=== PATIENT | female | born 1955 | race Caucasian/White ===

== ENCOUNTER 2021-03-08 09:27 | Outpatient (REF) | payer MEDICARE, MEDICAID, SELFPAY ==
--- NOTE | ~2021-03-08 | XR_ITS ---
EXAMINATION: XR LUMBAR SPINE XR HIP, RIGHT CLINICAL INFORMATION: Lower back pain. Right hip pain. Trochanteric bursitis. COMPARISON: None TECHNIQUE: AP, lateral, coned-down, and bilateral oblique views of the lumbar spine. AP and frog-leg lateral views of the right hip. FINDINGS: LUMBAR SPINE: Normal vertebral body alignment. The lumbar lordosis is maintained. No acute fracture or subluxation. No loss of vertebral body height. Loss of intervertebral disc height with endplate osteophytes and bilateral facet arthropathy at L5-S1. No lytic or blastic osseous lesion. No abnormal soft tissue calcification. RIGHT HIP: Mild right hip joint space narrowing with small lateral acetabular marginal osteophytes. No fracture or dislocation. No osseous erosion. No abnormal soft tissue calcification. XR/XR lumbar spine 4V min IMPRESSION: Lumbar spine: [id number] degenerative disc disease with bilateral facet arthropathy at L5-S1. Right hip: Mild osteoarthritis.
--- NOTE | ~2021-03-08 | XR_ITS ---
EXAMINATION: XR LUMBAR SPINE XR HIP, RIGHT CLINICAL INFORMATION: Lower back pain. Right hip pain. Trochanteric bursitis. COMPARISON: None TECHNIQUE: AP, lateral, coned-down, and bilateral oblique views of the lumbar spine. AP and frog-leg lateral views of the right hip. FINDINGS: LUMBAR SPINE: Normal vertebral body alignment. The lumbar lordosis is maintained. No acute fracture or subluxation. No loss of vertebral body height. Loss of intervertebral disc height with endplate osteophytes and bilateral facet arthropathy at L5-S1. No lytic or blastic osseous lesion. No abnormal soft tissue calcification. RIGHT HIP: Mild right hip joint space narrowing with small lateral acetabular marginal osteophytes. No fracture or dislocation. No osseous erosion. No abnormal soft tissue calcification. XR/XR hip RT min 2V IMPRESSION: Lumbar spine: [id number] degenerative disc disease with bilateral facet arthropathy at L5-S1. Right hip: Mild osteoarthritis.
== END 2021-03-08 09:28 | disposition home or self-care (01) ==
LOC: HO.XRAY 09:27
PROVIDERS: Visit Provider Nurse Practitioner Family
DX: G89.29 Other chronic pain (principal); M25.551 Pain in right hip; M70.61 Trochanteric bursitis, right hip
CPT/HCPCS: 72110; 73502

== ENCOUNTER → 2021-04-06 09:52 | Outpatient (BNVA) | payer MEDICARE, MEDICAID, SELFPAY | PROVIDERS: PCP Family Medicine; Visit Provider Orthopaedic Surgery | DX: M47.816 Spondylosis without myelopathy or radiculopathy, lumbar region (principal); R26.9 Unspecified abnormalities of gait and mobility | CPT/HCPCS: 99202 ==

== ENCOUNTER 2021-05-17 12:00 | Outpatient (RCR) | payer OTHER, MEDICAID, SELFPAY ==
[2021-05-08 13:47] VITALS: BP 130/63; PULSE 74
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
--- NOTE | 2021-06-05 14:44 | MHC.PT.DC ---
[facility] [place] Office [place] Office [place] Office [address] 140 [facility] [phone] F: [phone] F: [phone] F: [phone] F: [phone] Physical Therapy Discharge Report Diagnosis: Spondylosis without myelopathy or radiculopathy, lumbar region Date of Surgery: NA Date of Evaluation: 05/08/21 Date of Discharge: 06/05/21 Treatments to Date: 2 Cancellations to Date: 5 No Shows to Date: 0 Discharge Status: Visit Non-compliance Discharge Summary: Candie has missed 5 appointments since her evaluation. She has therefore been d/c for non compliance. Electronically signed by: Janell Farrell PT DPT Please sign and return to therapist. Thank you for your referral.
== END 2021-06-05 14:44 | disposition home or self-care (01) ==
LOC: HO.PT 12:00
PROVIDERS: PCP Nurse Practitioner Family; Visit Provider Orthopaedic Surgery
DX: M47.816 Spondylosis without myelopathy or radiculopathy, lumbar region (principal); R26.9 Unspecified abnormalities of gait and mobility
CPT/HCPCS: 97110; 97140; 97161

== ENCOUNTER 2021-07-04 09:19 | Outpatient (REF) | payer OTHER, MEDICAID, SELFPAY ==
--- NOTE | ~2021-07-04 | US_ITS ---
EXAMINATION: US THYROID CLINICAL INFORMATION: Nontoxic single thyroid nodule. COMPARISON: Thyroid soft tissue neck ultrasound 09/05/2016. TECHNIQUE: Linear transducer schaeffer-scale and color Doppler examination with attention to the region of the thyroid. FINDINGS: SIZE: Measurements of the thyroid lobes and nodules are given in sagittal, anteroposterior and transverse dimensions respectively. Right Thyroid Lobe: 3.3 x 1.1 x 1.4 cm, volume 2.7 mL. Previously 3.1 x 1.4 x 1.4 cm, volume 3.1 mL. Parenchyma: The gland echotexture is heterogeneous. Thyroid vascularity is normal. Left Thyroid Lobe: 3.8 x 1.4 x 1.8 cm, volume 4.5 mL. Previously 4.0 x 1.6 x 1.6 cm, volume 5.3 mL. Parenchyma: The gland echotexture is heterogeneous. Thyroid vascularity is normal. Isthmus: 0.5 cm in maximum AP dimension. Previously 0.5 cm. No focal thyroid nodule is seen at this time. Previously seen thyroid nodule in right lobe no longer seen. NODES: No lymphadenopathy is seen in the tissue surrounding the thyroid gland. US/US thyroid IMPRESSION: Heterogeneous normal sized thyroid gland. No thyroid nodules seen. ACR TI-RADS RECOMMENDATION REFERENCE: Ultrasound-guided fine-needle aspiration, followup ultrasound, no further follow up. * TR1 (0 point) and TR 2 (2 points): No FNA or follow up. * TR3 (3 points): FNA if more than or equal to 2.5 cm in maximum dimension, followup ultrasound in 1, 3 and 5 years if 1.5 to 2.4 cm in maximum dimension. * TR4 (4-6 points): FNA if more than or equal to 1.5 cm in maximum dimension, followup ultrasound in 1, 2, 3 and 5 years if 1 to 1.4 cm in maximum dimension. * TR5 (more than or equal to 7 points): FNA if more than or equal to 1 cm in maximum dimension, followup ultrasound every year for 5 years if 0.5 to 0.9 cm in maximum dimension. * TR3, TR4 or TR5 nodules that are below the size threshold for follow up receive no follow up.
== END 2021-07-04 09:20 | disposition home or self-care (01) ==
LOC: HO.US 09:19
PROVIDERS: PCP Physician Assistant; Visit Provider Physician Assistant
DX: E04.1 Nontoxic single thyroid nodule (principal)
CPT/HCPCS: 76536

== ENCOUNTER 2021-07-20 09:30 | Outpatient (REF) | payer OTHER, SELFPAY ==
--- NOTE | ~2021-07-20 | MM_ITS ---
EXAMINATION: MM SCREENING DIGITAL BREAST TOMOSYNTHESIS, BILATERAL CLINICAL INFORMATION: Screening. Asymptomatic. The lifetime risk of breast cancer based on the Tyrer-Cuzick Model is 7.0%. COMPARISON: Mammography: May 19, 2018 and studies dating back to May 16, 2015 TECHNIQUE: Digital breast tomosynthesis is performed in both the craniocaudal and mediolateral oblique views along with computer-aided detection (CAD). Synthesized 2D images are generated from the tomosynthesis. FINDINGS: The breasts are heterogeneously dense, which may obscure small masses (ACR BI-RADS breast composition Category c). There are no significant masses, abnormal calcifications, or other abnormalities. MM/MM tomosynthesis screening BI IMPRESSION: There are no significant changes from prior study. ASSESSMENT: BI-RADS BI-RADS 1 RECOMMENDATION: Routine annual mammography screening. This patient's information was entered into a reminder system with a target due date for their next mammogram.
== END 2021-07-20 09:31 | disposition home or self-care (01) ==
LOC: HO.MAMMO 09:30
PROVIDERS: Visit Provider Physician Assistant
DX: Z12.31 Encounter for screening mammogram for malignant neoplasm of breast (principal)
CPT/HCPCS: 77063; 77067

== ENCOUNTER 2021-08-29 07:13 | Outpatient (REF) | payer OTHER, MEDICAID, SELFPAY ==
--- NOTE | ~2021-08-29 | XR_ITS ---
EXAMINATION: XR LUMBOSACRAL SPINE CLINICAL INFORMATION: Low back pain COMPARISON: None TECHNIQUE: Three views of the lumbosacral spine. FINDINGS: There is normal lumbar lordosis. The vertebral heights and alignment is normal. There is loss of L5-S1 disc height with vacuum disc phenomenon. Rest of the disc heights are normal. No visible acute fracture, dislocation or lytic process seen. The paravertebral soft tissues are normal. XR/XR lumbar spine 2-3V IMPRESSION: Mild degenerative disc changes L5-S1 disc level with no visible acute fracture, dislocation or subluxation seen.
[2021-08-29 08:21] LABS: Estimated Average Glucose 123 mg/dL; Hemoglobin A1c % 5.9 %
[2021-08-29 08:24] LABS: Hematocrit 35.6 % (37.0-47.0); Hemoglobin 11.8 g/dl (12.0-16.0); Mean Corpuscular HGB Conc 33.1 g/dl (31.0-35.0); Mean Corpuscular Hemoglobin 29.2 pg (27.0-33.0); Mean Corpuscular Volume 88.1 fL (80.0-98.0); Mean Platelet Volume 11.6 fL (9.4-12.3); Platelet Count 233 X10*3/uL (160-400); Red Blood Count 4.04 X10*6/uL (4.20-5.50); Red Cell Distribution Width 13.2 % (11.0-16.0); White Blood Count 6.8 X10*3/uL (4.8-10.8)
[2021-08-29 08:47] LABS: Alanine Aminotransferase 26 U/L (0-31); Albumin Level 4.2 g/dL (3.5-5.0); Alkaline Phosphatase 70 U/L (39-117); Anion Gap 10 (12-20); Aspartate Amino Transferase 19 U/L (5-31); Bilirubin Total 0.4 mg/dL (0.0-1.0); Blood Urea Nitrogen 17 mg/dL (9-16); C Reactive Protein 0.77 mg/dL (< or = 0.50); Calcium 9.4 mg/dL (8.4-10.2); Carbon Dioxide 27 mmol/L (22-29); Chloride 109 mmol/L (96-108); Cholesterol 205 mg/dL; Estimated Glomerular Filt Rate > 60; Glucose Fasting 102 mg/dL (60-99); HDL Cholesterol 56 mg/dL; LDL Cholesterol Calculated 126 mg/dl; Potassium 4.3 mmol/L (3.3-5.1); Rheumatoid Factor < 15.0 IU/mL (<15.0); Sodium 142 mmol/L (135-145); Total Protein 7.2 g/dL (6.5-8.0); Triglycerides 116 mg/dL
[2021-08-29 09:07] LABS: TSH reflex Free T4 1.14 uIU/mL (0.32-4.0)
[2021-08-29 09:08] LABS: Erythrocyte Sedimentation Rate 22 MM/HR (0-20)
[2021-08-29 09:13] LABS: Microalbum/Creatinine Ratio Ur 6.4 ug/mg cr
[2021-08-31 18:46] LABS: Cyclic Citrullinated Peptide <16 UNITS
[2021-09-01 12:48] LABS: Anti Nuclear Antibody Screen POSITIVE (NEGATIVE)
== END 2021-08-29 07:14 | disposition home or self-care (01) ==
LOC: HO.LAB 07:13
PROVIDERS: PCP Physician Assistant; Visit Provider Physician Assistant
DX: M54.50 Low back pain, unspecified (principal); I10 Essential (primary) hypertension; M25.50 Pain in unspecified joint; E78.2 Mixed hyperlipidemia; E03.9 Hypothyroidism, unspecified; E66.01 Morbid (severe) obesity due to excess calories; Z68.35 Body mass index [BMI] 35.0-35.9, adult
CPT/HCPCS: 36415; 72100; 80053; 80061; 82043; 83036; 84443; 85027; 85652; 86038; 86039; 86140; 86200; 86431

== ENCOUNTER → 2022-02-14 09:57 | Outpatient (BNVA) | payer OTHER, MEDICAID, SELFPAY | PROVIDERS: PCP Physician Assistant; Visit Provider Surgery Vascular Surgery | DX: I83.12 Varicose veins of left lower extremity with inflammation (principal) | CPT/HCPCS: 99212 ==

== ENCOUNTER 2022-04-10 12:29 | Outpatient (REF) | payer OTHER, MEDICAID, SELFPAY ==
--- NOTE | ~2022-04-10 | US_ITS ---
EXAMINATION: US LOWER EXTREMITY VENOUS (REFLUX EXAM), BILATERAL CLINICAL INDICATION: Chronic venous insufficiency with lower extremity varicose veins and inflammation COMPARISON: None. TECHNIQUE: Color flow triplex imaging and compression Doppler was performed to evaluate both the deep and the superficial systems bilaterally. To evaluate the superficial system, the examination was performed in the upright position. Color-flow Doppler ultrasound and compression ultrasound were utilized. In addition, maneuvers were utilized to demonstrate reflux. FINDINGS: 1. DEEP VENOUS ULTRASOUND OF THE RIGHT LOWER EXTREMITY: Common Femoral Vein: Compressible, normal respiratory variation and augmented flow. Femoral Vein: Compressible, normal color flow and augmentation. Popliteal Vein: Compressible, normal augmentation. Deep Reflux: There is no evidence of reflux in the deep system in either the common femoral vein or the popliteal vein. There is no evidence of a Leslie's cyst. 2. SUPERFICIAL ULTRASOUND WITH DOPPLER OF RIGHT LOWER EXTREMITY: GREAT SAPHENOUS VEIN: Saphenofemoral Junction: 0.7 cm; Reflux: 0 ms Proximal Thigh: 0.3 cm; Reflux: 0 ms Mid Thigh: 0.3 cm; Reflux: 0 ms Above Knee: 0.3 cm; Reflux: 0 ms At Knee: 0.3 cm; Reflux: 0 ms Below Knee: 0.1 cm; Reflux: 0 ms Mid Calf: 0.1 cm; Reflux: 0 ms Ankle: 0.2 cm; Reflux: 920 ms DUPLICATED MEDIAL GREAT SAPHENOUS VEIN: Diameter: 0.2 cm Reflux: None DUPLICATED LATERAL GREAT SAPHENOUS VEIN: Diameter: None Imaged Reflux: NA SMALL SAPHENOUS VEIN: Proximal: 0.2 cm; Reflux: 0 ms Distal: 0.1 cm; Reflux: 0 ms VEIN OF GIACOMINI: None Imaged. PERFORATORS: Location: None Imaged Size: NA Reflux: NA VARICOSITIES: Location: None significant Size: NA Reflux: NA 3. DEEP VENOUS ULTRASOUND OF THE LEFT LOWER EXTREMITY: Common Femoral Vein: Compressible, normal respiratory variation and augmented flow. Femoral Vein: Compressible, normal color flow and augmentation. Popliteal Vein: Compressible, normal augmentation. Deep Reflux: There is moderate reflux in the left common femoral vein measuring 1628 ms There is no evidence of a Leslie's cyst. 4. SUPERFICIAL ULTRASOUND WITH DOPPLER OF LEFT LOWER EXTREMITY: GREAT SAPHENOUS VEIN: Saphenofemoral Junction: 0.8 cm; Reflux: 0 ms Proximal Thigh: 0.4 cm; Reflux: 0 ms Mid Thigh: 0.3 cm; Reflux: 0 ms Above Knee: 0.3 cm; Reflux: 0 ms At Knee: 0.3 cm; Reflux: 736 ms Below Knee: 0.3 cm; Reflux: 0 ms Mid Calf: Less than 0.1 cm; Reflux: 0 ms Ankle: 0.2 cm; Reflux: 0 ms DUPLICATED MEDIAL GREAT SAPHENOUS VEIN: Diameter: None Imaged Reflux: NA DUPLICATED LATERAL GREAT SAPHENOUS VEIN: Diameter: 0.3 cm Reflux: None SMALL SAPHENOUS VEIN: Proximal: 0.2 cm; Reflux: 0 ms Distal: 0.1 cm; Reflux: 0 ms VEIN OF GIACOMINI: None Imaged. PERFORATORS: Location: None Imaged Size: NA Reflux: NA VARICOSITIES: Location: None Imaged Size: NA Reflux: NA US/US venous duplex LE BI IMPRESSION: Right: Focal reflux in the great saphenous vein at the ankle. Normal duplex evaluation of the right lower extremity otherwise Left: Deep venous reflux in the left common femoral vein. Focal reflux in the great saphenous vein at the level the knee. Normal duplex evaluation of the left lower extremity otherwise.
== END 2022-04-10 12:30 | disposition home or self-care (01) ==
LOC: HO.US 12:29
PROVIDERS: Visit Provider Surgery Vascular Surgery
DX: I83.12 Varicose veins of left lower extremity with inflammation (principal)
CPT/HCPCS: 93970

== ENCOUNTER 2022-04-18 08:55 | Outpatient (REF) | payer OTHER, MEDICAID, SELFPAY ==
[2022-04-18 09:30] LABS: Mean Corpuscular HGB Conc 32.4 g/dl (31.0-35.0); Mean Corpuscular Hemoglobin 28.6 pg (27.0-33.0); Mean Corpuscular Volume 88.3 fL (80.0-98.0); Mean Platelet Volume 11.3 fL (9.4-12.3); Platelet Count 242 X10*3/uL (160-400); Red Blood Count 4.19 X10*6/uL (4.20-5.50); Red Cell Distribution Width 13.2 % (11.0-16.0); White Blood Count 6.7 X10*3/uL (4.8-10.8)
[2022-04-18 10:10] LABS: Alanine Aminotransferase 31 U/L (0-31); Albumin Level 4.3 g/dL (3.5-5.0); Alkaline Phosphatase 74 U/L (39-117); Anion Gap 13 (12-20); Aspartate Amino Transferase 20 U/L (5-31); Bilirubin Total 0.5 mg/dL (0.0-1.0); Blood Urea Nitrogen 15 mg/dL (9-16); Calcium 9.7 mg/dL (8.4-10.2); Carbon Dioxide 26 mmol/L (22-29); Chloride 107 mmol/L (96-108); Cholesterol 214 mg/dL; Estimated Glomerular Filt Rate > 60; Glucose Fasting 101 mg/dL (60-99); HDL Cholesterol 56 mg/dL; LDL Cholesterol Calculated 129 mg/dl; Potassium 4.5 mmol/L (3.3-5.1); Sodium 141 mmol/L (135-145); TSH reflex Free T4 0.72 uIU/mL (0.32-4.0); Total Protein 7.1 g/dL (6.5-8.0); Triglycerides 145 mg/dL
[2022-04-18 12:44] LABS: Microalbum/Creatinine Ratio Ur 7.1 ug/mg cr
== END 2022-04-18 08:56 | disposition home or self-care (01) ==
LOC: HO.LAB 08:55
PROVIDERS: PCP Physician Assistant; Visit Provider Physician Assistant
DX: E78.2 Mixed hyperlipidemia (principal); I10 Essential (primary) hypertension; I83.12 Varicose veins of left lower extremity with inflammation
CPT/HCPCS: 36415; 80053; 80061; 82043; 84443; 85027; 99212

== ENCOUNTER 2022-11-12 08:26 | Outpatient (AMB) | payer MEDICARE, MEDICAID, SELFPAY ==
--- NOTE | 2022-11-12 08:39 | MHC.PC.OV ---
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 Accompanied by: Self / Same As Patient Allergies loratadine [From CLARITIN] Allergy (Severe, Verified 11/12/22 08:50) PASS OUT, syncope prednisolone Allergy (Unknown, Verified 11/12/22 08:50) syncope tramadol [From ULTRAM] Allergy (Unknown, Verified 11/12/22 08:50) UNKNOWN, rash prednisone [PREDNISONE] Adverse Reaction (Severe, Verified 11/12/22 08:50) SWELLING statins Allergy (Unknown, Uncoded 11/12/22 08:39) muscle px Medication List - Last Reconciled 11/12/22 by Eliezer Viera PA-C acetaminophen ER (Pain Relief (acetaminophen)) 1,300 mg (2 x 650 mg) PO Q8H 30 days baclofen 10 mg PO DAILY diclofenac sodium 1% 1 ea topical QID 30 days ezetimibe 10 mg PO DAILY fluticasone propion-salmeterol 500-50 mcg/dose (Advair Diskus) 1 inh inhalation BID 30 days gabapentin 400 mg PO BID 90 days hydrocortisone valerate 0.2% 1 appl topical BID PRN 10 days hydroxyzine HCl 10 mg PO BEDTIME PRN 10 days ipratropium bromide 2 sprays intranasal BID 30 days levothyroxine 125 mcg PO DAILY lorazepam 0.5 mg PO DAILY 10 days losartan 50 mg PO DAILY meloxicam 15 mg PO DAILY montelukast 10 mg PO DAILY omeprazole 20 mg PO BID 90 days Tobacco use date assessed: 11/12/22 Fall risk assessment: No Falls in past year Last assessed Fall Risk: 11/12/22 Dental Screening Dental Screen Date: 11/12/22 Did you have a dental visit in the last 12 months?: Yes Was dental information given to patient?: Patient has dentist HPI Annual Exam HPI Details Patient is a 67-year-old female here today for an annual physical.? 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 Will be moving permanently to [place] when need 90 day supplies of her medications before she leaves. .. Generalized anxiety disorder:? Continues to episodes generalized anxiety specially with large crowds of people.? She is still going through grief due to loss of her son 3 months ago.? She is interested in an as-needed medication for her anxious symptoms. . HTN:? Blood pressure acceptable today in office.? Continues on losartan 50 mg.? ? Denies any chest discomfort, headaches or dizziness. . .. Hypothyroidism:? Continues on levothyroxine, will recheck TSH to ensure normal.? Also does have a history of thyroid nodules and needs repeat ultrasound for surveillance. Vaccines: UTD with PVC, TDap and flu, decline COVID Mammogram: Needs up-to-date mammogram (of note has a family history breast cancer) Colon cancer screening: UTD with COlononscopy. Laboratory Tests 04/18/22 09:10 Fasting Glucose 101 H Cholesterol 214 TSH 0.72 PFSH Surgical History History of appendectomy History of cholecystectomy History of hysterectomy History of neck surgery Family History Mother Breast cancer, Onset Age: 60 Sister Breast cancer Father Heart attack, Onset Age: 50 Other Mental health disorder Substance use disorder Social History Housing: House Alcohol intake: never Patient Tobacco Use Status: Never used Tobacco e-Cigarette/Vaping Use: Never Used Second Hand Smoke Exposure: No service: No Current occupational status: disabled Cognitive needs: No Hearing needs: No Vision needs: Yes (Glasses) Female Reproductive History Menstrual Date of Mammogram: 07/20/21 History of abnormal mammogram: No Questionnaire Thrive Questionnaire Date Thrive assessed: 05/08/22 JOSEPH-7 AMB Questionnaire JOSEPH-7 Date JOSEPH - 7 assessed: 05/08/22 Source: Developed by Drs. Shashank Fuchs, Tamika Freeman, Duy Bustamante and colleagues, with an educational travon from [employer]. ACT Questionnaire In the past 4 weeks, how much of the time did your asthma keep you from getting as much done at work, school or at home?: A little of the time During the past 4 weeks, how often have you had shortness of breath?: Not at all During the past 4 weeks, how often did your asthma symptoms wake you up at night or earlier than usual in the morning?: Not at all During the past 4 weeks, how often have you had to use your rescue inhaler or nebulizer medication?: Not at all How would you rate your asthma control during the past 4 weeks?: Completely controlled ACT Interpretation: Negative Score: 24 Review of Systems Const Denies body aches, Denies chills, Denies excessive sweating, Denies fatigue, Denies fever(s) and Denies headache(s) Eyes Denies blurry vision ENT Denies dysphagia, Denies vertigo, Denies dizziness, Denies headache(s), Denies hearing loss and Denies tinnitus Card Denies chest pain, Denies chest pain with activity, Denies syncope, Denies irregular heart rhythm and Denies dyspnea Resp Denies chest congestion, Denies cough, Denies hemoptysis, Denies dyspnea and Denies wheezing GI Denies abdominal pain, Denies melena, Denies hematochezia, Denies coffee ground emesis, Denies dysphagia, Denies diarrhea, Denies nausea and Denies vomiting Denies urinary frequency, Denies dysuria, Denies urinary hesitancy and Denies urinary urgency Musc Denies arthralgias, Denies limited range of motion, Denies muscle cramps and Denies muscle weakness Skin/Breast Denies rash and Denies skin ulcer Neuro Denies Abnormal speech present, Denies confusion, Denies vertigo, Denies dizziness, Denies syncope, Denies headache(s), Denies memory loss and Denies seizure-like activity Psych Denies anxiety, Denies confusion, Denies depression, Denies memory loss, Denies panic attacks and Denies paranoia Endo Denies excessive sweating, Denies fatigue, Denies flushing, Denies polydipsia and Denies polyuria Aller/Immun Denies wheezing Physical exam (Primary Care) Vital Signs: Last Vital Signs Pulse 76 11/12/22 08:40 BP 128/78 11/12/22 08:40 Pulse Ox 97 11/12/22 08:40 BMI result Body Mass Index 34.1 BMI Assessment/Plan discussion: High Tobacco/Smoking Status: Tobacco use Status Tobacco use date assessed 11/12/22 11/12/22 08:39 Patient Tobacco Use Status Never used Tobacco 11/12/22 08:39 e-Cigarette/Vaping Use Never Used 11/12/22 08:39 Thrive Assessment: Date of Thrive Assessment Date Thrive assessed 05/08/22 11/12/22 08:39 Const Other: Obese General: cooperative, comfortable, no acute distress, alert and awake; No confusion Orientation/consciousness: oriented to person, oriented to place, patient oriented x3 and No confusion HENMT Head: Yes normocephalic Ears: external ears normal and TM's normal bilaterally Face and sinus: No sinus tenderness Mouth: Normal oral and palatal mucosa present and tongue normal Teeth and gingiva: dentition normal and gingiva normal Throat: Yes posterior oropharynx normal, Yes tonsils normal and Yes uvula midline Eyes Conjunctivae: conjunctivae normal Sclerae: sclerae normal Pupils: Equal, round and reactive pupils present EOM: EOMs intact bilaterally Direct Ophthalmoscopy: No no photophobia Neck Neck: Yes no lymphadenopathy, No tender and Yes no JVD Thyroid: Thyroid normal Carotids: no bruits Chest Chest palpation & inspection: no tenderness Resp Effort & Inspection: normal respiratory effort, no audible wheezes, not labored and no stridor Auscultation: no crackles, no rales, no rhonchi and no wheezes Cardio Jugular venous distension: no JVD Rate: regular rate, not bradycardic and not tachycardic Rhythm: regular rhythm Bruits: no carotid bruits Peripheral pulses: Peripheral pulses 2+ throughout GI Inspection: Yes normal to inspection, No abdominal wall ecchymosis and No visible herniation Palpation (GI): Soft to palpation, nontender, no guarding, not rigid and No hepatosplenomegaly present Auscultation: normoactive bowel sounds General: Yes no CVA tenderness Back/Spine/Pelvis Back: no CVA tenderness and No back tenderness Cervical Spine: cervical ROM normal Thoracic/Lumbar Spine: thoracic and lumbar spine normal to inspection, straight leg raise negative bilaterally, No thoraco-lumbar ROM limited and No lumbar spinal tenderness Skin Lesions: no lesions Rashes: no rashes Wounds: no wounds Neuro General: oriented to person, oriented to place, patient oriented x3, CN's II-XI intact bilaterally and No confusion Cranial nerves: Yes Equal, round and reactive pupils present and Yes Normal accommodation reflex present Cognition (Neuro): normal cognition Speech: No Abnormal speech present Gait exam (Neuro): Normal gait present Motor exam (neuro): 5/5 motor strength present throughout Extrem Right upper extremity: full ROM; no cyanosis Left upper extremity: full ROM; no cyanosis Right lower extremity: no edema Left lower extremity: no edema Psych Appearance: grossly normal Mental Status: mental status grossly normal Affect: normal affect Attitude: cooperative Thought process: Normal thought process present Assessment and Plan Assessment & Plan (1) Annual physical exam: Code(s): Z00.00 - Encounter for general adult medical examination without abnormal findings (2) HTN (hypertension): Code(s): I10 - Essential (primary) hypertension Qualifiers: Hypertension type: primary hypertension Qualified Code(s): I10 - Essential (primary) hypertension Plan: Blood pressure acceptable today in office. Will continue current antihypertensive medication with goal blood pressure be below 140/90 (3) Asthma: Code(s): J45.909 - Unspecified asthma, uncomplicated Qualifiers: Asthma complication type: uncomplicated Asthma persistence: intermittent Asthma severity: mild Qualified Code(s): J45.20 - Mild intermittent asthma, uncomplicated Plan: Asthma has been stable with daily use of Advair, p.r.n. use of albuterol inhaler and daily use of Singulair. No reports of asthma exacerbations are nighttime awakenings with asthma symptoms (4) PVD (peripheral vascular disease) with claudication: Code(s): I73.9 - Peripheral vascular disease, unspecified Plan: Has been stable since having some weight loss. Does use anti-inflammatory and gabapentin (5) HLD (hyperlipidemia): Code(s): E78.5 - Hyperlipidemia, unspecified Qualifiers: Hyperlipidemia type: mixed hyperlipidemia Qualified Code(s): E78.2 - Mixed hyperlipidemia Plan: Patient's most recent lipid panel showing only borderline total cholesterol. Patient continues on zetia. Will reestablish care with new PCP in [place] Goal LDL to be below 130 (6) Family history of breast cancer: Code(s): Z80.3 - Family history of malignant neoplasm of breast (7) Hypothyroid: Code(s): E03.9 - Hypothyroidism, unspecified Qualifiers: Hypothyroidism type: unspecified Qualified Code(s): E03.9 - Hypothyroidism, unspecified Plan: Patient's most recent TSH has been stable. Continues on levothyroxine 125 mcg. Has been able to lose weight since last office visit. Medications: Refilled levothyroxine 125 mcg PO DAILY 90 tabs 2RF E03.9 - Hypothyroidism, unspecified losartan 50 mg PO DAILY 90 tabs 1RF I10 - Essential (primary) hypertension montelukast 10 mg PO DAILY 90 tabs 3RF J45.20 - Mild intermittent asthma, uncomplicated omeprazole 20 mg PO BID 90 days 180 caps 1RF K21.9 - Gastro-esophageal reflux disease without esophagitis meloxicam 15 mg PO DAILY 90 tabs 1RF M47.816 - Spondylosis without myelopathy or radiculopathy, lumbar region gabapentin 400 mg PO BID 90 days 180 caps 1RF M47.816 - Spondylosis without myelopathy or radiculopathy, lumbar region fluticasone propion-salmeterol 500-50 mcg/dose (Advair Diskus) 1 inh inhalation BID 30 days 60 ea 3RF J45.20 - Mild intermittent asthma, uncomplicated ezetimibe 10 mg PO DAILY 90 tabs 1RF E78.2 - Mixed hyperlipidemia baclofen 10 mg PO DAILY 90 tabs 1RF M47.816 - Spondylosis without myelopathy or radiculopathy, lumbar region hydroxyzine HCl 10 mg PO BEDTIME 10 days PRN 10 tabs 0RF anxiety F41.0 - Panic disorder [episodic paroxysmal anxiety] Discontinued lorazepam Discontinued Reason: Doctor's Order 0.5 mg PO DAILY 10 days 10 tabs 0RF anxiety F43.21 - Adjustment disorder with depressed mood Coding Level of Care Code Est Pt Prev Care >65y(71678) Diagnoses Annual physical exam Z00.00 HTN (hypertension) I10 Hypertension type: primary hypertension Asthma J45.20 Asthma complication type: uncomplicated Asthma persistence: intermittent Asthma severity: mild PVD (peripheral vascular disease) with claudication I73.9 HLD (hyperlipidemia) E78.2 Hyperlipidemia type: mixed hyperlipidemia Family history of breast cancer Z80.3 Hypothyroid E03.9 Hypothyroidism type: unspecified
[2022-11-12 08:40] VITALS: BP 128/78; PULSE 76; O2SAT 97; BMI 34.1
== END 2022-11-12 09:07 | disposition home or self-care (01) ==
PROVIDERS: PCP Physician Assistant; Visit Provider Physician Assistant
DX: Z00.00 Encounter for general adult medical examination without abnormal findings (principal); I10 Essential (primary) hypertension; J45.20 Mild intermittent asthma, uncomplicated; I73.9 Peripheral vascular disease, unspecified; Z80.3 Family history of malignant neoplasm of breast; E03.9 Hypothyroidism, unspecified; E78.2 Mixed hyperlipidemia
CPT/HCPCS: 99397

== ENCOUNTER 2024-04-07 07:36 | Outpatient (AMB) | payer MEDICARE, MEDICAID, SELFPAY ==
--- NOTE | 2024-04-07 07:49 | MHC.PC.OV ---
Vital Signs 04/07/24 07:50 Height 5 ft 2 in Weight 185 lb BMI 33.8 BP 148/88 H Blood Pressure Location Lt brachial Position Sitting Pulse 79 Pulse Source Pulse Oximeter Pulse Oximetry (%) 98 Oxygen Delivery Method Room Air Intake Visit Reasons: Medication Review and Treament plan Allergies loratadine [From CLARITIN] Allergy (Severe, Verified 04/07/24 08:01) PASS OUT, syncope prednisolone Allergy (Unknown, Verified 04/07/24 08:01) syncope tramadol [From ULTRAM] Allergy (Unknown, Verified 04/07/24 08:01) UNKNOWN, rash prednisone [PREDNISONE] Adverse Reaction (Severe, Verified 04/07/24 08:01) SWELLING statins Allergy (Unknown, Uncoded 04/07/24 08:01) muscle px Medication List - Last Reconciled 04/07/24 by Eliezer Viera PA-C acetaminophen ER (Pain Relief (acetaminophen)) 1,300 mg (2 x 650 mg) PO Q8H 30 days baclofen 10 mg PO DAILY diclofenac sodium 1% 1 ea topical QID 30 days ezetimibe 10 mg PO DAILY fluticasone propion-salmeterol 500-50 mcg/dose (Advair Diskus) 1 inh inhalation BID 30 days gabapentin 400 mg PO BID 90 days hydrocortisone valerate 0.2% 1 appl topical BID PRN 10 days hydroxyzine HCl 10 mg PO BEDTIME PRN 10 days ipratropium bromide 2 sprays intranasal BID 30 days levothyroxine 125 mcg PO DAILY losartan 50 mg PO DAILY meloxicam 15 mg PO DAILY montelukast 10 mg PO DAILY omeprazole 20 mg PO BID 90 days Tobacco use date assessed: 04/07/24 Fall risk assessment: No Falls in past year Last assessed Fall Risk: 04/07/24 Dental Screening Dental Screen Date: 04/07/24 Did you have a dental visit in the last 12 months?: No Did you have a dental problem in the last 6 months where you did not have access to dental care?: No Was dental information given to patient?: Patient has dentist HPI Medication Review and Treament plan HPI Details Patient is a 68-year-old female here today for follow-up visit.? 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 Concern--> most recent living in [place] and about a year ago had an episode of acute dizziness, right-sided facial numbness and amnesia. She was evaluated at [facility] including a MRI of brain that did show small vessel infarctions. She did vestibular therapy which helped her vertigo/vestibular symptoms. She reports her symptoms are better though still does have some dizziness when sitting up from a lying down position in the mornings. .. Generalized anxiety disorder:? Continues to episodes generalized anxiety specially with large crowds of people.? She is still going through grief due to loss of her son 3 months ago.? She is interested in an as-needed medication for her anxious symptoms. . HTN:? Blood pressure slightly elevated today in office, she does not regularly check her blood pressure at home. Will supply patient with a paper Rx for blood pressure cuff to do home blood pressure monitoring..? Continues on losartan 50 mg. Consider increasing losartan if blood pressure remain above 140/90? ? Denies any chest discomfort, headaches or dizziness. . .. Hypothyroidism:? Continues on levothyroxine, will recheck TSH to ensure normal.? Also does have a history of thyroid nodules and needs repeat ultrasound for surveillance. [facility] Medical History (Updated 04/07/24 @ 09:21 by Eliezer Viera PA-C) PVD (peripheral vascular disease) with claudication Surgical History History of cholecystectomy History of appendectomy History of hysterectomy History of neck surgery Family History Mother Breast cancer, Onset Age: 60 Sister Breast cancer Father Heart attack, Onset Age: 50 Other Mental health disorder Substance use disorder Social History Housing: House Alcohol intake: never Patient Tobacco Use Status: Never used Tobacco Tobacco use type: Cigarette e-Cigarette/Vaping Use: Never Used Second Hand Smoke Exposure: No service: No Current occupational status: disabled Cognitive needs: No Hearing needs: No Vision needs: Yes (Glasses) Questionnaire PHQ-9 Over the last 2 weeks, how often have you been bothered by any of the following problems? 1. Little interest or pleasure in doing things: more than half the days 2. Feeling down, depressed, or hopeless: more than half the days 3. Trouble falling or staying asleep, or sleeping too much: more than half the days 4. Feeling tired or having little energy: more than half the days 5. Poor appetite or overeating: several days 6. Feeling bad about yourself - or that you are a failure or have let yourself or your family down: not at all 7. Trouble concentrating on things, such as reading the newspaper or watching television: several days 8. Moving or speaking so slowly that other people could have noticed. Or the opposite - being so fidgety or restless that you have been moving around a lot more than usual: not at all 9. Thoughts that you would be better off or of hurting yourself in some way: not at all Total score: 10 Depression Screening Interpretation: Positive Depression Screening Follow-up: Existing condition Depression Screening Done: Yes 62659 - PHQ-9 Billing: Yes Source: Developed by Drs. Shashank Fuchs, Tamika Freeman, Duy Bustamante and colleagues, with an educational travon from [employer]. Thrive Questionnaire Date Thrive assessed: 04/07/24 I am a: Patient What is your living situation today?: I have a steady place to live Within the past 12 months, did the food you bought not last and you didn't have the money to get more?: Never true Within the past 12 months, did you worry whether your food would run out before you got money to buy more?: Never true Do you have trouble paying for medicines?: No Do you have trouble getting transportation to medical appointments?: No Do you have trouble paying your heating and electricity bill?: No Do you have trouble taking care of your child, family member or friend?: No Do you have trouble with day-to-day activities such as bathing, preparing meals, shopping, managing finances, etc.?: No Are you currently unemployed and looking for a job?: No Are you interested in more education?: No Currently or been in a relationship where the following occur: No concerns reported THRIVE Score: 0 AUDIT C Alcohol Use Questionnaire (AUDIT-C) 1. How often do you have a drink containing alcohol?: Never 3. How often do you have six or more drinks on one occasion?: Never Total Score: 0 JOSEPH-7 AMB Questionnaire JOSEPH-7 Date JOSEPH - 7 assessed: 04/07/24 Feeling nervous, anxious, or on edge: 2 = More than half the days Not being able to stop or control worryin = Not at all Worrying too much about different things: 1 = Several days Trouble relaxin = More than half the days Being so restless that it is hard to sit still: 1 = Several days Becoming easily annoyed or irritable: 0 = Not at all Feeling afraid as if something awful might happen: 0 = Not at all Total JOSEPH-7 score (0-4 normal; 5-9 mild; 10-14 moderate; 15-21 severe): 6 Source: Developed by Drs. Shashank Fuchs, Tamika Freeman, Duy Bustamante and colleagues, with an educational travon from [employer]. JOSEPH-7 Assessment Billing JOSEPH-7 Assessment Tool: JOSEPH-7 Assessment 16504 Review of Systems Const Denies headache(s) Eyes Denies loss of vision ENT Denies vertigo, Denies dizziness, Denies headache(s) and Denies sore throat Card Denies chest pain, Denies leg edema and Denies lightheadedness Resp Denies cough, Denies hemoptysis and Denies wheezing GI Denies abdominal pain, Denies melena, Denies constipation, Denies diarrhea and Denies vomiting Denies urinary frequency, Denies dysuria and Denies urinary urgency Musc Denies arthralgias, Denies joint swelling, Denies numbness and Denies tingling Neuro Denies Abnormal speech present, Denies behavioral changes, Denies vertigo, Denies dizziness, Denies headache(s), Denies loss of vision, Denies memory loss, Denies numbness and Denies tingling Psych Denies anxiety, Denies behavioral changes, Denies depression, Denies memory loss and Denies panic attacks Petey/Lymph Denies easy bleeding and Denies easy bruising Aller/Immun Denies wheezing Physical exam (Primary Care) Vital Signs: Last Vital Signs Pulse 79 04/07/24 07:50 BP 148/88 H 04/07/24 07:50 Pulse Ox 98 04/07/24 07:50 Oxygen Delivery Method Room Air 04/07/24 07:50 BMI result Body Mass Index 33.8 Tobacco/Smoking Status: Tobacco use Status Tobacco use date assessed 04/07/24 04/07/24 07:59 Patient Tobacco Use Status Never used Tobacco 04/07/24 07:59 Tobacco use type Cigarette 04/07/24 07:59 e-Cigarette/Vaping Use Never Used 04/07/24 07:59 PHQ-9: PHQ-9 Score PHQ-9: Total score 10 04/07/24 07:59 Depression Screening Interpretation: Positive Depression Screening Follow-up: Existing condition Thrive Assessment: Date of Thrive Assessment Date Thrive assessed 04/07/24 04/07/24 07:59 Currently or been in a relationship where the following occur: No concerns reported Const General: healthy appearing, no acute distress, alert and awake Nutritional Appearance: well nourished Orientation/consciousness: oriented to person, oriented to place and oriented to time HENMT Ears: TM's normal bilaterally General nose exam: Normal nasal mucous membranes and turbinates present Eyes Conjunctivae: conjunctivae normal Sclerae: sclerae normal Pupils: Equal, round and reactive pupils present Neck Neck: Yes no lymphadenopathy and Yes no JVD Thyroid: Thyroid normal Carotids: no bruits Resp Effort & Inspection: normal respiratory effort and not tachypneic Auscultation: no crackles, no rales, no rhonchi and no wheezes Cardio Rate: regular rate Rhythm: regular rhythm Heart sounds: no murmurs and normal S1 and S2 GI Palpation (GI): Soft to palpation, nontender, no hepatomegaly and no splenomegaly Auscultation: normal bowel sounds Skin General skin exam: no rashes or lesions noted and dry skin Neuro General: oriented to person, oriented to place and oriented to time Cranial nerves: Yes Equal, round and reactive pupils present Speech: No Abnormal speech present Gait exam (Neuro): Normal gait present Motor exam (neuro): no tremor noted Extrem Right upper extremity: full ROM Left upper extremity: full ROM Right lower extremity: full ROM; no edema Left lower extremity: full ROM; no edema Psych Mental Status: mental status grossly normal Speech and movement: Normal speech and movement present Affect: normal affect Attitude: cooperative Thought process: Normal thought process present Coding Level of Care Code Est Pt Level 4 (58799) Diagnoses Hypothyroidism, unspecified type E03.9 Hypothyroidism type: unspecified Primary hypertension I10 Hypertension type: primary hypertension Mixed hyperlipidemia E78.2 Hyperlipidemia type: mixed hyperlipidemia 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 She continues on a stable dose of levothyroxine at this time. (2) HTN (hypertension): Code(s): I10 - Essential (primary) hypertension Category: Medical Qualifiers: Hypertension type: primary hypertension Qualified Code(s): I10 - Essential (primary) hypertension Plan: Patient's blood pressure slightly elevated today in office. She does not monitor blood pressure at home. Will commence home blood pressure monitoring and if consistently above 140 systolic will increase losartan dose. Goal blood pressure to be below 140/90 (3) HLD (hyperlipidemia): Code(s): E78.5 - Hyperlipidemia, unspecified Category: Medical Qualifiers: Hyperlipidemia type: mixed hyperlipidemia Qualified Code(s): E78.2 - Mixed hyperlipidemia Plan: Will recheck fasting lipid panel with goal LDL to be preferably below 100 due to her likely cerebral event/ stroke she had in [place] a year ago. (4) Vestibular disorder: Code(s): H81.90 - Unspecified disorder of vestibular function, unspecified ear Category: Medical Qualifiers: Laterality: right Qualified Code(s): H81.91 - Unspecified disorder of vestibular function, right ear Plan: Patient reports in March of 2023 having an episode of dizziness right-sided facial numbness and headache. She was evaluated in [place] with brain imaging that did show small vessel ischemic disease. Unclear if this was a small stroke thus will start baby aspirin. She was started vestibular therapy which helped her Orders: Orders TSH reflex Free T4 Today E03.9 - Hypothyroidism, unspecified PT Evaluation and Treatment Today H81.90 - Unspecified disorder of vestibular function, unspecified ear Microalbumin, Random (w Creat) Today I10 - Essential (primary) hypertension Comprehensive Cobb. Panel Fast Today I10 - Essential (primary) hypertension Complete Blood Count no Diff Today I10 - Essential (primary) hypertension Lipid Panel Today E78.2 - Mixed hyperlipidemia Medications: New miscellaneous medical supply (Blood Pressure Cuff) As directed 1 ea 0RF I10 - Essential (primary) hypertension aspirin (Adult Low Dose Aspirin) 81 mg PO DAILY 90 days 90 tabs 2RF R07.2 - Precordial pain
[2024-04-07 07:50] VITALS: BP 148/88; PULSE 79; O2SAT 98; BMI 33.8
== END 2024-04-07 08:28 | disposition home or self-care (01) ==
PROVIDERS: PCP Physician Assistant; Visit Provider Physician Assistant
DX: E03.9 Hypothyroidism, unspecified (principal); I10 Essential (primary) hypertension; E78.2 Mixed hyperlipidemia; H81.91 Unspecified disorder of vestibular function, right ear

== ENCOUNTER → 2024-04-07 07:36 | Outpatient (BNVA) | payer MEDICARE, MEDICAID, SELFPAY | PROVIDERS: PCP Physician Assistant; Visit Provider Physician Assistant | DX: E03.9 Hypothyroidism, unspecified (principal); I10 Essential (primary) hypertension; E78.2 Mixed hyperlipidemia; H81.91 Unspecified disorder of vestibular function, right ear | CPT/HCPCS: 96127; 99212 ==

== ENCOUNTER 2024-04-08 21:47 | Emergency (ER) | payer MEDICARE, SELFPAY ==
--- NOTE | 2024-04-08 | ECG_ITS ---
Test Reason : dizziness Blood Pressure : / mmHG Vent. Rate : 069 BPM Atrial Rate : 069 BPM P-R Int : 174 ms QRS Dur : 084 ms QT Int : 402 ms P-R-T Axes : 059 019 012 degrees QTc Int : 430 ms Normal sinus rhythm Normal ECG When compared with ECG of 03-JUN-2016 13:49, No significant change was found Referred By: Generic ED Physician Electronically Signed By:James Bunch
[2024-04-08 21:50] VITALS: BP 154/90; PULSE 77; O2SAT 98
[2024-04-08 21:57] VITALS: BP 160/84; PULSE 68; RESP 16; TEMP 36.9; O2SAT 96; BMI 35.1
[2024-04-08 22:22] LABS: Basophils Absolute Auto 0.1 X10*3/uL (0.0-0.2); Basophils Percent Auto 0.6 % (0-2); Eosinophils Absolute Auto 0.2 X10*3/uL (0.0-0.4); Eosinophils Percent Auto 1.8 % (0-4); Hematocrit 35.4 % (37.0-47.0); Imm Gran Abs Auto 0.02 X10*3/uL (0.00-0.03); Imm Gran Pct Auto 0.2 % (0.0-0.4); Lymphocytes Absolute Auto 3.1 X10*3/uL (1.2-4.9); MANUAL DIFF FLAG NO; Mean Corpuscular HGB Conc 33.9 g/dl (31.0-35.0); Mean Corpuscular Hemoglobin 29.3 pg (27.0-33.0); Mean Corpuscular Volume 86.6 fL (80.0-98.0); Mean Platelet Volume 10.8 fL (9.4-12.3); Monocytes Absolute Auto 0.7 X10*3/uL (0.1-1.2); Monocytes Percent Auto 7.4 % (2-11); Neutrophils Absolute Auto 4.9 x10*3/uL (2.0-8.3); Platelet Count 225 X10*3/uL (160-400); Red Blood Count 4.09 X10*6/uL (4.20-5.50); Red Cell Distribution Width 13.1 % (11.0-16.0); White Blood Count 8.9 X10*3/uL (4.8-10.8)
[2024-04-08 22:44] LABS: Alanine Aminotransferase 22 U/L (0-31); Albumin Level 4.2 g/dL (3.5-5.0); Alkaline Phosphatase 60 U/L (39-117); Anion Gap 12 (12-20); Aspartate Amino Transferase 22 U/L (5-31); Bilirubin Total 0.3 mg/dL (0.0-1.0); Blood Urea Nitrogen 19 mg/dL (9-16); Carbon Dioxide 27 mmol/L (22-29); Chloride 107 mmol/L (96-108); Creatinine Clr Calc Pharmacy 57.8; Estimated Glomerular Filt Rate 57; Glucose Random 131 mg/dL (60-115); Magnesium 2.1 mg/dL (1.6-2.6); Potassium 4.4 mmol/L (3.3-5.1); Sodium 142 mmol/L (135-145); Total Protein 7.4 g/dL (6.5-8.0)
--- NOTE | 2024-04-08 22:52 | ED.GENADULT ---
HPI - General Adult General Chief complaint: General Medical Stated complaint: Hypertension,dizzy Time Seen by Provider: 04/08/24 22:03 Source: patient and EMS Mode of arrival: EMS Limitations: no limitations History of Present Illness ED Provider: Gloria Saunders NP HPI narrative: Patient is a 68-year-old female who presents to the emergency department for evaluation. She contacted EMS as she was experiencing an episode of dizziness described as a lightheaded sensation. She reports that she awoke from her sleep to get a glass of water when she felt dizzy, nose concern as she has been having recently elevated blood pressure readings 160s-90s, this lasted a few seconds before self-resolving. She also reports that she had an area of discomfort to her right proximal forearm just below her elbow described as a tightness. This resolved after about 10 minutes. She denies associated vision changes, neck pain, neck stiffness, room spinning sensation, chest pain, shortness of breath, difficulty breathing, numbness or tingling of the extremities. Related Data Previous Rx's ?Medication ?Instructions ?Recorded diclofenac sodium 1 % topical gel 1 ea topical QID 30 days #100 grams 07/09/21 ipratropium bromide 21 mcg (0.03 2 spray intranasal BID 30 days #30 09/03/21 %) nasal spray mL acetaminophen 650 mg 1,300 mg (2 x 650 mg) PO Q8H 30 03/06/22 tablet,extended release (Pain days #180 tabs Relief (acetaminophen)) fluticasone 500 mcg-salmeterol 50 1 inh inhalation BID 30 days #60 ea 11/12/22 mcg/dose blistr powdr for inhalation (Advair Diskus) hydroxyzine HCl 10 mg tablet 10 mg PO BEDTIME PRN anxiety 10 11/12/22 days #10 tabs baclofen 10 mg tablet 10 mg PO DAILY #90 tabs 02/23/24 ezetimibe 10 mg tablet 10 mg PO DAILY #90 tabs 02/23/24 gabapentin 400 mg capsule 400 mg PO BID 90 days #180 caps 02/23/24 hydrocortisone valerate 0.2 % 1 appl topical BID PRN skin 02/23/24 topical ointment irritation 10 days #45 grams levothyroxine 125 mcg tablet 125 mcg PO DAILY #90 tabs 02/23/24 losartan 50 mg tablet 50 mg PO DAILY #90 tabs 02/23/24 meloxicam 15 mg tablet 15 mg PO DAILY #90 tabs 02/23/24 montelukast 10 mg tablet 10 mg PO DAILY #90 tabs 02/23/24 omeprazole 20 mg capsule,delayed 20 mg PO BID 90 days #180 caps 02/23/24 release aspirin 81 mg tablet,delayed 81 mg PO DAILY 90 days #90 tabs 04/07/24 release (Adult Low Dose Aspirin) miscellaneous medical supply #1 ea 04/07/24 (Blood Pressure Cuff) Allergies Allergy/AdvReac Type Severity Reaction Status Date / Time loratadine [From CLARITIN] Allergy Severe PASS OUT, Verified 04/08/24 22:05 syncope prednisolone Allergy Unknown syncope Verified 04/08/24 22:05 tramadol [From ULTRAM] Allergy Unknown UNKNOWN, Verified 04/08/24 22:05 rash prednisone [PREDNISONE] AdvReac Severe SWELLING Verified 04/08/24 22:05 statins Allergy Unknown muscle px Uncoded 04/08/24 22:05 Review of Systems Review of Systems: Yes all other systems are reviewed and are negative PMFSH Past Medical History Attestation statement: The following information was validated with the patient. Source: old records reviewed Medical History PVD (peripheral vascular disease) with claudication Surgical History History of cholecystectomy History of appendectomy History of hysterectomy History of neck surgery Family History Family History Mother Breast cancer, Onset Age: 60 Sister Breast cancer Father Heart attack, Onset Age: 50 Other Mental health disorder Substance use disorder Social History Social History Housing: House Alcohol intake: never Patient Tobacco Use Status: Never used Tobacco Tobacco use type: Cigarette Smoked in Last 30 Days: No e-Cigarette/Vaping Use: Never Used Second Hand Smoke Exposure: No Use of substances other than those prescribed or required for medical reasons: No Advance Directives: No Advance Directives Information Provided: No service: No Current occupational status: disabled Cognitive needs: No Hearing needs: No Vision needs: Yes (Glasses) Physical Exam ED Vital Signs: Vital Signs - 24 hr 04/08/24 21:57 04/08/24 23:23 04/08/24 23:25 Temperature 98.4 F Pulse Rate 68 63 60 Respiratory Rate 16 Blood Pressure 160/84 H 145/64 H 144/76 H Pulse Oximetry 96 Oxygen Delivery Method Room Air 04/08/24 23:26 Temperature Pulse Rate 65 Respiratory Rate Blood Pressure 151/75 H Pulse Oximetry Oxygen Delivery Method BMI result Body Mass Index 35.1 Appearance: Alert.?Oriented to person, place and time. No acute distress.?Normal affect. Eyes: Pupils equal, round and reactive to light.? ENT: Pharynx normal.?? Neck: Normal inspection.? Neck supple.?? CVS: Heart sounds normal. Normal heart rate and rhythm.? Pulses normal.?? Respiratory: No respiratory distress.? Lung sounds clear to auscultation bilaterally?? Abdomen: Soft and non-tender. Normoactive bowel sounds. No pulsatile mass.?? Skin: Skin warm and dry.? Normal skin color.? Extremities: No lower extremity edema.? No calf ttp? Neuro: No focal neurological deficit observed, CN II-XII intact, normal sensory observed, normal coordination observed. Level of consciousness: Appropriate for age. Motor strength: right upper extremity 5 /5, left upper extremity 5 /5, right lower extremity 5 /5, left lower extremity 5 /5.?Speech: Normal, Gait: Normal, Xvflvp-[id number] test: Normal, Wrdg-vw-[id number] test: Normal. Course Reevaluation(s) Reevaluation #1: Patient is well-appearing, nontoxic, remains without any focal neurological deficits. Has had no further episodes of dizziness. As mentioned this episode lasted seconds and had self-resolved. Serum labs overall unremarkable, EKG is nonischemic, does not appear consistent with ACS. Recommend close outpatient follow-up with primary care doctor in continued monitoring of blood pressure levels at home. She had no orthostatic hypotension today and has been ambulatory with a steady gait. Medical Decision Making Medical Decision Making MDM Narrative: Patient is a 68-year-old female with past medical history of PVD, hypertension, hyperlipidemia, hypothyroidism, who presents emergency department for an episode of dizziness lasting a few seconds and resolved discomfort to the left proximal forearm prior to arrival. She is well-appearing, nontoxic, afebrile. Neuro exam with no abnormal findings, no focal neuro deficits, no spontaneous or gaze evoked nystagmus, no ataxia, no diplopia, dysarthria, dysphagia, dysphonia, dysmetria. Dizziness has resolved. There was note of a discomfort to the left proximal forearm which has also resolved, no tenderness upon palpation no erythema or warmth, no deformity. Will obtain CBC to evaluate for leukocytosis/ anemia, CMP to evaluate for abnormal electrolytes /abnormal renal function/ abnormal hepatic function, EKG and troponin to evaluate for ischemia/ACS. This is very brief episode it was noticed upon sitting up to get out of bed for glass of water, concern for possible orthostatic hypotension. Lower suspicion for TIA/CVA, cerebellar functioning testing is normal. 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 for which she did vestibular therapy, has continued to have intermittent dizziness particularly when sitting up from a lying down position in the mornings, elevated blood pressure readings currently prescribed losartan advised to keep and outpatient Admission/Observation Consideration of admission/observation: Escalation of care including admission/observation considered Lab Data MDM Lab Attestation statement: I reviewed the patient's lab results. CBC is without leukocytosis anemia or thrombocytopenia. No electrolyte derangement. No CAMILLE. High sensitive troponin below detectable limits. 04/08/24 22:17 04/08/24 22:17 Labs: Lab Results 04/08/24 Range/Units 22:17 WBC 8.9 (4.8-10.8) X10*3/uL RBC 4.09 L (4.20-5.50) X10*6/uL Hgb 12.0 (12.0-16.0) g/dl Hct 35.4 L (37.0-47.0) % MCV 86.6 (80.0-98.0) fL MCH 29.3 (27.0-33.0) pg MCHC 33.9 (31.0-35.0) g/dl RDW 13.1 (11.0-16.0) % Plt Count 225 (160-400) X10*3/uL MPV 10.8 (9.4-12.3) fL Immature Gran % (Auto) 0.2 (0.0-0.4) % Neut % (Auto) 55.0 (45-73) % Lymph % (Auto) 35.0 (20-40) % [place] % (Auto) 7.4 (2-11) % Eos % (Auto) 1.8 (0-4) % Baso % (Auto) 0.6 (0-2) % Lymph # (Auto) 3.1 (1.2-4.9) X10*3/uL [place] # (Auto) 0.7 (0.1-1.2) X10*3/uL Eos # (Auto) 0.2 (0.0-0.4) X10*3/uL Baso # (Auto) 0.1 (0.0-0.2) X10*3/uL Abs Immat Gran (auto) 0.02 (0.00-0.03) X10*3/uL Absolute Neuts (auto) 4.9 (2.0-8.3) x10*3/uL Absolute Nucleated RBC 0.000 (0.0-0.012) X10*3/uL Nucleated RBC % (auto) 0.0 (0.0-0.2) /100WBC Sodium 142 (135-145) mmol/L Potassium 4.4 (3.3-5.1) mmol/L Chloride 107 (96-108) mmol/L Carbon Dioxide 27 (22-29) mmol/L Anion Gap 12 (12-20) BUN 19 H (9-16) mg/dL Creatinine 0.98 (0.5-1.4) mg/dL Estim Creat Clear Calc 57.8 Estimated GFR 57 Random Glucose 131 H (60-115) mg/dL Calcium 10.0 (8.4-10.2) mg/dL Magnesium 2.1 (1.6-2.6) mg/dL Total Bilirubin 0.3 (0.0-1.0) mg/dL AST 22 (5-31) U/L ALT 22 (0-31) U/L Alkaline Phosphatase 60 (39-117) U/L Troponin I High Sens < 2.7 (<3.5-17.0) ng/L Total Protein 7.4 (6.5-8.0) g/dL Albumin 4.2 (3.5-5.0) g/dL Independent Interpretation I performed an independent interpretation of an: EKG Interpretation: EKG revealing normal sinus rhythm, ventricular rate of 69, normal SHIELA, QTC 430, no ST elevation, no ST depression. Independent Historian Clinical information obtained from an independent historian. History obtained from or confirmed by: EMS External Record Review External record reviewed: Outpatient record Discharge Plan Discharge Clinical Impression: Hypertension Patient Disposition: Home, Self-Care Instructions: Hypertension (ED) Additional Instructions: Blood pressure today remains elevated but does not require IV high blood pressure medication. You were evaluated today for an episode of dizziness that last a few seconds upon getting up from sleep to go and get water. You had no further episodes of this dizziness. Your blood work today was very reassuring. EKG was normal. Your troponin, cardiac enzymes that is used to detect evidence of a heart attack was normal. There does not appear to be any drop in blood pressure when you are changing positions. Please follow-up with your primary care doctor, continue to keep a log of your blood pressures as advised. Return to emergency department with any new or worsening symptoms or concerns Prescriptions: No Action diclofenac sodium 1 % gel 1 ea topical QID 30 Days Qty: 100 3RF ipratropium bromide 21 mcg (0.03 %) spray,non-aerosol 2 spray intranasal BID 30 Days Qty: 30 0RF Rx Instructions: administer into each nostril acetaminophen [Pain Relief (acetaminophen)] 650 mg tablet extended release 1,300 mg PO Q8H 30 Days Qty: 180 2RF ezetimibe 10 mg tablet 10 mg PO DAILY Qty: 90 1RF gabapentin 400 mg capsule 400 mg PO BID 90 Days Qty: 180 1RF losartan 50 mg tablet 50 mg PO DAILY Qty: 90 1RF hydrocortisone valerate 0.2 % ointment 1 appl topical BID PRN (Reason: skin irritation) 10 Days Qty: 45 0RF montelukast 10 mg tablet 10 mg PO DAILY Qty: 90 3RF omeprazole 20 mg capsule,delayed release(DR/EC) 20 mg PO BID 90 Days Qty: 180 1RF meloxicam 15 mg tablet 15 mg PO DAILY Qty: 90 1RF levothyroxine 125 mcg tablet 125 mcg PO DAILY Qty: 90 2RF baclofen 10 mg tablet 10 mg PO DAILY Qty: 90 2RF fluticasone propion-salmeterol [Advair Diskus] 500-50 mcg/dose blister with device 1 inh inhalation BID 30 Days Qty: 60 3RF hydroxyzine HCl 10 mg tablet 10 mg PO BEDTIME PRN (Reason: anxiety) 10 Days Qty: 10 0RF (DME) Blood Pressure Cuff Misc See Rx Instructions .ROUTE .MEDSUPPLY Qty: 1 0RF Rx Instructions: As directed aspirin [Adult Low Dose Aspirin] 81 mg tablet,delayed release (DR/EC) 81 mg PO DAILY 90 Days Qty: 90 2RF Print Language: Icelandic
[2024-04-08 22:53] LABS: Troponin-I High Sensitivity < 2.7 ng/L (<3.5-17.0)
[2024-04-08 23:23] VITALS: BP 145/64; PULSE 63
[2024-04-08 23:25] VITALS: BP 144/76; PULSE 60
[2024-04-08 23:26] VITALS: BP 151/75; PULSE 65
--- NOTE | 2024-04-08 23:30 | MHC.EDTECH ---
at this time this tech performed orthostatic vital signs on the pt due to the pt having weakness. The pt reported no dizziness or lightheartednesses when going into a supine position, no symptoms when changing from lying to sitting, but did report some dizziness when changing position from sitting to standing. Vital signs appeared to be stable, pt tolerated procedure well
[2024-04-09 01:07] VITALS: BP 138/70; PULSE 68; RESP 18; TEMP 36.7; O2SAT 98
[2024-04-09 01:29] VITALS: BP 138/70; PULSE 68; RESP 18; TEMP 36.7; O2SAT 98
== END 2024-04-09 01:40 | disposition home or self-care (01) ==
PROVIDERS: Emergency Provider Emergency Medicine; PCP Physician Assistant
DX: R42 Dizziness and giddiness (principal); I10 Essential (primary) hypertension; M79.631 Pain in right forearm; Z79.899 Other long term (current) drug therapy
CPT/HCPCS: 36415; 80053; 83735; 84484; 85025; 93005; 99283; 99284

== ENCOUNTER → 2024-04-08 21:54 | Outpatient (BNV) | payer MEDICARE, SELFPAY | PROVIDERS: Emergency Provider Emergency Medicine; PCP Physician Assistant; Visit Provider Internal Medicine Cardiovascular Disease | DX: R42 Dizziness and giddiness (principal) | CPT/HCPCS: 93010 ==

== ENCOUNTER 2024-04-13 07:09 | Outpatient (REF) | payer MEDICARE, SELFPAY ==
[2024-04-13 07:48] LABS: Hemoglobin 13.1 g/dl (12.0-16.0); Mean Corpuscular HGB Conc 33.6 g/dl (31.0-35.0); Mean Corpuscular Hemoglobin 29.4 pg (27.0-33.0); Mean Corpuscular Volume 87.4 fL (80.0-98.0); Platelet Count 247 X10*3/uL (160-400); Red Blood Count 4.46 X10*6/uL (4.20-5.50); White Blood Count 9.1 X10*3/uL (4.8-10.8)
[2024-04-13 08:37] LABS: Alanine Aminotransferase 23 U/L (0-31); Albumin Level 4.4 g/dL (3.5-5.0); Alkaline Phosphatase 60 U/L (39-117); Anion Gap 12 (12-20); Aspartate Amino Transferase 25 U/L (5-31); Bilirubin Total 0.4 mg/dL (0.0-1.0); Blood Urea Nitrogen 21 mg/dL (9-16); Calcium 9.8 mg/dL (8.4-10.2); Carbon Dioxide 29 mmol/L (22-29); Chloride 105 mmol/L (96-108); Cholesterol 190 mg/dL (<200); Estimated Glomerular Filt Rate > 60; Glucose Fasting 103 mg/dL (60-99); HDL Cholesterol 55 mg/dL (>40); LDL Cholesterol Calculated 109 mg/dL (<100); Potassium 3.7 mmol/L (3.3-5.1); Sodium 142 mmol/L (135-145); Total Protein 7.8 g/dL (6.5-8.0); Triglycerides 134 mg/dL (<150)
[2024-04-13 08:54] LABS: TSH reflex Free T4 2.02 uIU/mL (0.32-4.0)
[2024-04-13 10:00] LABS: Creatinine Urine 549.08 mg/dL; Microalbum/Creatinine Ratio Ur 7.2 ug/mg cr (<30)
== END 2024-04-13 07:10 | disposition home or self-care (01) ==
LOC: HO.LAB 07:09
PROVIDERS: PCP Physician Assistant; Visit Provider Physician Assistant
DX: E03.9 Hypothyroidism, unspecified (principal); I10 Essential (primary) hypertension; E78.2 Mixed hyperlipidemia
CPT/HCPCS: 36415; 80053; 80061; 82043; 82570; 84443; 85027

== ENCOUNTER 2024-05-12 09:16 | Outpatient (AMB) | payer MEDICARE, MEDICAID, SELFPAY ==
[2024-05-12 09:40] VITALS: BP 140/90; PULSE 66; O2SAT 97; BMI 34.4
--- NOTE | 2024-05-12 09:40 | MHC.PC.OV ---
Vital Signs 05/12/24 09:40 Height 5 ft 2 in Intake Visit Reasons: f/u HTN Allergies loratadine [From CLARITIN] Allergy (Severe, Verified 04/08/24 22:05) PASS OUT, syncope prednisolone Allergy (Unknown, Verified 04/08/24 22:05) syncope tramadol [From ULTRAM] Allergy (Unknown, Verified 04/08/24 22:05) UNKNOWN, rash prednisone [PREDNISONE] Adverse Reaction (Severe, Verified 04/08/24 22:05) SWELLING statins Allergy (Unknown, Uncoded 04/08/24 22:05) muscle px Tobacco use date assessed: 04/07/24 Dental Screening Dental Screen Date: 04/07/24 PFSH Medical History PVD (peripheral vascular disease) with claudication Surgical History History of cholecystectomy History of appendectomy History of hysterectomy History of neck surgery Family History Mother Breast cancer, Onset Age: 60 Sister Breast cancer Father Heart attack, Onset Age: 50 Other Mental health disorder Substance use disorder Social History Housing: House Alcohol intake: never Patient Tobacco Use Status: Never used Tobacco Tobacco use type: Cigarette e-Cigarette/Vaping Use: Never Used Second Hand Smoke Exposure: No service: No Current occupational status: disabled Cognitive needs: No Hearing needs: No Vision needs: Yes (Glasses) Questionnaire Thrive Questionnaire Date Thrive assessed: 04/07/24 JOSEPH-7 AMB Questionnaire JOSEPH-7 Date JOSEPH - 7 assessed: 04/07/24 Source: Developed by Drs. Shashank Fuchs, Tamika Freeman, Duy Bustamante and colleagues, with an educational traovn from [employer]. Physical exam (Primary Care) Tobacco/Smoking Status: Tobacco use Status Tobacco use date assessed 04/07/24 04/07/24 07:59 Patient Tobacco Use Status Never used Tobacco 04/08/24 22:05 Tobacco use type Cigarette 04/07/24 07:59 e-Cigarette/Vaping Use Never Used 04/07/24 07:59 Thrive Assessment: Date of Thrive Assessment Date Thrive assessed 04/07/24 04/07/24 07:59 Coding
--- NOTE | 2024-05-12 09:43 | A.OFFPC_ITS ---
Vital Signs 05/12/24 09:40 Height 5 ft 2 in Weight 188 lb BMI 34.4 BP 140/90 H Blood Pressure Location Lt brachial Position Sitting Pulse 66 Pulse Source Pulse Oximeter Pulse Oximetry (%) 97 Oxygen Delivery Method Room Air Intake Visit Reasons: PE Intake Note: Patient is here today for a physical. Hat Block Bench Hand Required: No Accompanied by: Self / Same As Patient Allergies loratadine [From CLARITIN] Allergy (Severe, Verified 05/12/24 09:56) PASS OUT, syncope prednisolone Allergy (Unknown, Verified 05/12/24 09:56) syncope tramadol [From ULTRAM] Allergy (Unknown, Verified 05/12/24 09:56) UNKNOWN, rash prednisone [PREDNISONE] Adverse Reaction (Severe, Verified 05/12/24 09:56) SWELLING statins Allergy (Unknown, Uncoded 05/12/24 09:56) muscle px Medication List - Last Reconciled 05/12/24 by Eliezer Viera PA-C acetaminophen ER (Pain Relief (acetaminophen)) 1,300 mg (2 x 650 mg) PO Q8H 30 days aspirin (Adult Low Dose Aspirin) 81 mg PO DAILY 90 days baclofen 10 mg PO DAILY diclofenac sodium 1% 1 ea topical QID 30 days ezetimibe 10 mg PO DAILY fluticasone propion-salmeterol 500-50 mcg/dose (Advair Diskus) 1 inh inhalation BID 30 days gabapentin 400 mg PO BID 90 days hydrocortisone valerate 0.2% 1 appl topical BID PRN 10 days hydroxyzine HCl 10 mg PO BEDTIME PRN 10 days ipratropium bromide 2 sprays intranasal BID 30 days levothyroxine 125 mcg PO DAILY losartan 50 mg PO DAILY meloxicam 15 mg PO DAILY miscellaneous medical supply (Blood Pressure Cuff) As directed montelukast 10 mg PO DAILY omeprazole 20 mg PO BID 90 days Tobacco use date assessed: 05/12/24 Fall risk assessment: No Falls in past year Last assessed Fall Risk: 05/12/24 Dental Screening Dental Screen Date: 05/12/24 Did you have a dental visit in the last 12 months?: No Did you have a dental problem in the last 6 months where you did not have access to dental care?: No Was dental information given to patient?: Patient has dentist HPI PE HPI Details atient is a 68-year-old female here today for follow-up visit.? 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 Concern--> most recent living in [place] and about a year ago had an episode of acute dizziness, right-sided facial numbness and amnesia. She was evaluated at [facility] including a MRI of brain that did show small vessel infarctions. She did vestibular therapy which helped her vertigo/vestibular symptoms. .. Generalized anxiety disorder:? Continues to episodes generalized anxiety specially with large crowds of people.? She is still going through grief due to loss of her son 3 months ago.? She is interested in an as-needed medication for her anxious symptoms. . HTN:? Blood pressure elevated today in office. She does monitor blood pressure and reports 140s systolic quite regularly. Of note does have intermittent episodes of dizziness that may or may not be related to her blood pressure. PLAN: Will add on hydrochlorothiazide for better blood pressure control. Advised to continue monitoring blood pressure at home .. Hypothyroidism:? Continues on levothyroxine, will recheck TSH to ensure normal.? Also does have a history of thyroid nodules and needs repeat ultrasound for surveillance. Vaccines: UTD with PVC, TDap and flu, decline COVID Mammogram: Needs up-to-date mammogram (of note has a family history breast cancer) Colon cancer screening: UTD with COlononscopy- done about 3 years ago when [place]. [facility] Medical History PVD (peripheral vascular disease) with claudication Surgical History History of cholecystectomy History of appendectomy History of hysterectomy History of neck surgery Family History Mother Breast cancer, Onset Age: 60 Sister Breast cancer Father Heart attack, Onset Age: 50 Other Mental health disorder Substance use disorder Social History Housing: House Alcohol intake: never Patient Tobacco Use Status: Never used Tobacco Tobacco use type: Cigarette e-Cigarette/Vaping Use: Never Used Second Hand Smoke Exposure: No service: No Current occupational status: disabled Cognitive needs: No Hearing needs: No Vision needs: Yes (Glasses) Questionnaire PHQ-9 Over the last 2 weeks, how often have you been bothered by any of the following problems? 1. Little interest or pleasure in doing things: several days 2. Feeling down, depressed, or hopeless: more than half the days 3. Trouble falling or staying asleep, or sleeping too much: nearly every day 4. Feeling tired or having little energy: nearly every day 5. Poor appetite or overeating: nearly every day 6. Feeling bad about yourself - or that you are a failure or have let yourself or your family down: more than half the days 7. Trouble concentrating on things, such as reading the newspaper or watching television: several days 8. Moving or speaking so slowly that other people could have noticed. Or the opposite - being so fidgety or restless that you have been moving around a lot more than usual: more than half the days 9. Thoughts that you would be better off or of hurting yourself in some way: not at all Total score: 17 Depression Screening Interpretation: Positive Depression Screening Follow-up: Existing condition and Declines treatment Depression Screening Done: Yes 95257 - PHQ-9 Billing: Yes Source: Developed by Drs. Shashank Fuchs, Tamika Freeman, Duy Bustamante and colleagues, with an educational travon from [employer]. Thrive Questionnaire Date Thrive assessed: 05/12/24 I am a: Patient What is your living situation today?: I have a steady place to live Within the past 12 months, did the food you bought not last and you didn't have the money to get more?: Never true Within the past 12 months, did you worry whether your food would run out before you got money to buy more?: Never true Do you have trouble paying for medicines?: No Do you have trouble getting transportation to medical appointments?: No Do you have trouble paying your heating and electricity bill?: No Do you have trouble taking care of your child, family member or friend?: No Do you have trouble with day-to-day activities such as bathing, preparing meals, shopping, managing finances, etc.?: No Are you currently unemployed and looking for a job?: No Are you interested in more education?: No Please select the resources that you would like help with: None Currently or been in a relationship where the following occur: No concerns reported THRIVE Score: 0 AUDIT C Alcohol Use Questionnaire (AUDIT-C) 1. How often do you have a drink containing alcohol?: Never 3. How often do you have six or more drinks on one occasion?: Never Total Score: 0 JOSEPH-7 AMB Questionnaire JOSEPH-7 Date JOSEPH - 7 assessed: 05/12/24 Feeling nervous, anxious, or on edge: 3 = Nearly every day Not being able to stop or control worryin = More than half the days Worrying too much about different things: 2 = More than half the days Trouble relaxin = Nearly every day Being so restless that it is hard to sit still: 1 = Several days Becoming easily annoyed or irritable: 1 = Several days Feeling afraid as if something awful might happen: 1 = Several days Total JOSEPH-7 score (0-4 normal; 5-9 mild; 10-14 moderate; 15-21 severe): 13 Source: Developed by Drs. Shashank Fuchs, Tamika Freeman, Duy Bustamante and colleagues, with an educational travon from [employer]. JOSEPH-7 Assessment Billing JOSEPH-7 Assessment Tool: JOSEPH-7 Assessment 96984 Review of Systems Const Denies body aches, Denies chills, Denies excessive sweating, Denies fatigue, Denies fever(s) and Denies headache(s) Eyes Denies blurry vision ENT Denies dysphagia, Denies vertigo, Denies dizziness, Denies headache(s), Denies hearing loss and Denies tinnitus Card Denies chest pain, Denies chest pain with activity, Denies syncope, Denies irregular heart rhythm and Denies dyspnea Resp Denies chest congestion, Denies cough, Denies hemoptysis, Denies dyspnea and Denies wheezing GI Denies abdominal pain, Denies melena, Denies hematochezia, Denies coffee ground emesis, Denies dysphagia, Denies diarrhea, Denies nausea and Denies vomiting Denies urinary frequency, Denies dysuria, Denies urinary hesitancy and Denies urinary urgency Musc Denies arthralgias, Denies limited range of motion, Denies muscle cramps and Denies muscle weakness Skin/Breast Denies rash and Denies skin ulcer Neuro Denies Abnormal speech present, Denies confusion, Denies vertigo, Denies dizziness, Denies syncope, Denies headache(s), Denies memory loss and Denies seizure-like activity Psych Denies anxiety, Denies confusion, Denies depression, Denies memory loss, Denies panic attacks and Denies paranoia Endo Denies excessive sweating, Denies fatigue, Denies flushing, Denies polydipsia and Denies polyuria Aller/Immun Denies wheezing Physical exam (Primary Care) Vital Signs: Last Vital Signs Pulse 66 05/12/24 09:40 BP 140/90 H 05/12/24 09:40 Pulse Ox 97 05/12/24 09:40 Oxygen Delivery Method Room Air 05/12/24 09:40 BMI result Body Mass Index 34.4 BMI Assessment/Plan discussion: High BMI High, discussed plan: lifestyle, weight reduction, dietary and physical activity Tobacco/Smoking Status: Tobacco use Status Tobacco use date assessed 05/12/24 05/12/24 09:53 Patient Tobacco Use Status Never used Tobacco 05/12/24 09:49 Tobacco use type Cigarette 05/12/24 09:49 e-Cigarette/Vaping Use Never Used 05/12/24 09:49 PHQ-9: PHQ-9 Score PHQ-9: Total score 17 05/12/24 09:53 Depression Screening Interpretation: Positive Depression Screening Follow-up: Existing condition and Declines treatment Thrive Assessment: Date of Thrive Assessment Date Thrive assessed 05/12/24 05/12/24 09:49 Currently or been in a relationship where the following occur: No concerns reported Const General: cooperative, comfortable, no acute distress, alert and awake; No confusion Orientation/consciousness: oriented to person, oriented to place, patient oriented x3 and No confusion HENMT Head: Yes normocephalic Ears: external ears normal and TM's normal bilaterally Face and sinus: No sinus tenderness Mouth: Normal oral and palatal mucosa present and tongue normal Teeth and gingiva: dentition normal and gingiva normal Throat: Yes posterior oropharynx normal, Yes tonsils normal and Yes uvula midline Eyes Conjunctivae: conjunctivae normal Sclerae: sclerae normal Pupils: Equal, round and reactive pupils present EOM: EOMs intact bilaterally Direct Ophthalmoscopy: No no photophobia Neck Neck: Yes no lymphadenopathy, No tender and Yes no JVD Thyroid: Thyroid normal Carotids: no bruits Chest Chest palpation & inspection: no tenderness Resp Effort & Inspection: normal respiratory effort, no audible wheezes, not labored and no stridor Auscultation: no crackles, no rales, no rhonchi and no wheezes Cardio Jugular venous distension: no JVD Rate: regular rate, not bradycardic and not tachycardic Rhythm: regular rhythm Bruits: no carotid bruits Peripheral pulses: Peripheral pulses 2+ throughout GI Inspection: Yes normal to inspection, No abdominal wall ecchymosis and No visible herniation Palpation (GI): Soft to palpation, nontender, no guarding, not rigid and No hepatosplenomegaly present Auscultation: normoactive bowel sounds General: Yes no CVA tenderness Back/Spine/Pelvis Back: no CVA tenderness and No back tenderness Cervical Spine: cervical ROM normal Thoracic/Lumbar Spine: thoracic and lumbar spine normal to inspection, straight leg raise negative bilaterally, No thoraco-lumbar ROM limited and No lumbar spinal tenderness Skin Lesions: no lesions Rashes: no rashes Wounds: no wounds Neuro General: oriented to person, oriented to place, patient oriented x3, CN's II-XI intact bilaterally and No confusion Cranial nerves: Yes Equal, round and reactive pupils present and Yes Normal accommodation reflex present Cognition (Neuro): normal cognition Speech: No Abnormal speech present Gait exam (Neuro): Normal gait present Motor exam (neuro): 5/5 motor strength present throughout Extrem Right upper extremity: full ROM; no cyanosis Left upper extremity: full ROM; no cyanosis Right lower extremity: no edema Left lower extremity: no edema Psych Appearance: grossly normal Mental Status: mental status grossly normal Affect: normal affect Attitude: cooperative Thought process: Normal thought process present Office Procedures Flu Questionnaire Does the patient have a severe egg allergy?: No Does the patient have severe life threatening allergies?: No Does the patient have a fever or illness today?: No Has the patient ever had Guillain-[place] Syndrome?: No Has the patient ever had any past reaction to a flu shot?: No Immunizations Fluarix Triv [id number] (PF) 45 mcg (15 mcg x 3)/0.5 mL IM syringe Performing Provider: Eliezer Viera PA-C [facility] Documented (not given) by: ROLDAN Mcrae on 05/12/24 09:51 Reason Not Given: Patient Refused Coding Level of Care Code Est Pt Prev Care >65y(90381) Diagnoses Annual physical exam Z00.00 Hypothyroidism, unspecified type E03.9 Hypothyroidism type: unspecified Primary hypertension I10 Hypertension type: primary hypertension Mixed hyperlipidemia E78.2 Hyperlipidemia type: mixed hyperlipidemia 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 Laterality: right Class 1 obesity E66.811 Additional Codes OJSEPH-7 Assessment Billing - JOSEPH-7 Assessment Tool: JOSEPH-7 Assessment 06172 ([id number]) PHQ-9 - 52313 - PHQ-9 Billing: Yes ([id number]) Assessment & Plan Assessment & Plan (1) Annual physical exam: Code(s): Z00.00 - Encounter for general adult medical examination without abnormal findings Category: Medical Plan: As per HPI (2) Hypothyroid: Code(s): E03.9 - Hypothyroidism, unspecified Category: Medical Qualifiers: Hypothyroidism type: unspecified Qualified Code(s): E03.9 - Hypothyroidism, unspecified Plan: Most recent TSH stable. She continues on a stable dose of levothyroxine at this time. (3) HTN (hypertension): Code(s): I10 - Essential (primary) hypertension Category: Medical Qualifiers: Hypertension type: primary hypertension Qualified Code(s): I10 - Essential (primary) hypertension Plan: Patient's blood pressure slightly elevated today in office. She does monitor blood pressure at home and notes systolic numbers to be around 140 will add on hydrochlorothiazide 12.5 for better blood pressure control. Goal blood pressure to be below 140/90 (4) HLD (hyperlipidemia): Code(s): E78.5 - Hyperlipidemia, unspecified Category: Medical Qualifiers: Hyperlipidemia type: mixed hyperlipidemia Qualified Code(s): E78.2 - Mixed hyperlipidemia Plan: Most recent fasting lipid panel showing excellent control over total cholesterol and LDL. Goal LDL is to remain below 130 (5) Vestibular disorder: Code(s): H81.90 - Unspecified disorder of vestibular function, unspecified ear Category: Medical Qualifiers: Laterality: right Qualified Code(s): H81.91 - Unspecified disorder of vestibular function, right ear Plan: Patient reports in March of 2023 having an episode of dizziness right-sided facial numbness and headache. She was evaluated in [place] with brain imaging that did show small vessel ischemic disease. Unclear if this was a small stroke thus will start baby aspirin. Still awaiting a call to start with vestibular therapy. She does report having intermittent episodes of dizziness which could be related to her high blood pressure though this is unclear. Would likely benefit from vestibular therapy (6) Class 1 obesity: Code(s): E66.811 - Obesity, class 1 Category: Medical Plan: Patient does understand her BMI is over 30 will work on being more physically active and adapting to better eating habits to reduce her weight. Orders: Orders Influenza [id number] Immunization Today Z23 - Encounter for immunization PT Evaluation and Treatment Today H81.91 - Unspecified disorder of vestibular function, right ear MM screening mammo BI Today H81.91 - Unspecified disorder of vestibular function, right ear Medications: New losartan-hydrochlorothiazide 50-12.5 mg 1 tab PO DAILY 90 days 90 tabs 1RF I10 - Essential (primary) hypertension Refilled hydroxyzine HCl 10 mg PO BEDTIME 10 days PRN 10 tabs 0RF anxiety F41.0 - Panic disorder [episodic paroxysmal anxiety] gabapentin 400 mg PO BID 90 days 180 caps 1RF M47.816 - Spondylosis without myelopathy or radiculopathy, lumbar region Discontinued losartan Discontinued Reason: Doctor's Order 50 mg PO DAILY 90 tabs 1RF I10 - Esse ntial (primary) hypertension
== END 2024-05-12 10:14 | disposition home or self-care (01) ==
PROVIDERS: PCP Physician Assistant; Visit Provider Physician Assistant
DX: Z00.00 Encounter for general adult medical examination without abnormal findings (principal); E03.9 Hypothyroidism, unspecified; Z68.34 Body mass index [BMI] 34.0-34.9, adult; E66.811 Obesity, class 1; I10 Essential (primary) hypertension; E78.2 Mixed hyperlipidemia; H81.91 Unspecified disorder of vestibular function, right ear

== ENCOUNTER → 2024-05-12 09:16 | Outpatient (BNVA) | payer MEDICARE, MEDICAID, SELFPAY | PROVIDERS: PCP Physician Assistant; Visit Provider Physician Assistant | DX: Z00.00 Encounter for general adult medical examination without abnormal findings (principal); E03.9 Hypothyroidism, unspecified; I10 Essential (primary) hypertension; K21.9 Gastro-esophageal reflux disease without esophagitis; E78.2 Mixed hyperlipidemia; H81.91 Unspecified disorder of vestibular function, right ear; E66.811 Obesity, class 1; F41.0 Panic disorder [episodic paroxysmal anxiety]; M47.816 Spondylosis without myelopathy or radiculopathy, lumbar region; Z68.34 Body mass index [BMI] 34.0-34.9, adult; Z28.21 Immunization not carried out because of patient refusal | CPT/HCPCS: 96127; 99397 ==

== ENCOUNTER 2024-06-03 14:05 | Outpatient (REF) | payer MEDICARE, MEDICAID, SELFPAY | END 2024-06-03 14:06 | disposition home or self-care (01) | LOC: HO.MAMMO 14:05 | PROVIDERS: PCP Physician Assistant; Visit Provider Physician Assistant | DX: Z12.31 Encounter for screening mammogram for malignant neoplasm of breast (principal) | CPT/HCPCS: 77063; 77067 ==

== ENCOUNTER → 2024-06-03 14:45 | Outpatient (BNV) | payer MEDICARE, MEDICAID, SELFPAY | PROVIDERS: PCP Physician Assistant; Visit Provider Internal Medicine | DX: Z12.31 Encounter for screening mammogram for malignant neoplasm of breast (principal) | CPT/HCPCS: 77063; 77067 ==

== ENCOUNTER 2024-07-20 11:00 | Outpatient (RCR) | payer MEDICARE, MEDICAID, SELFPAY ==
[2024-05-31 08:22] VITALS: BP 138/94; PULSE 66; O2SAT 98
--- NOTE | 2024-05-31 09:47 | MHC.PT.EP ---
[facility] Office [place] Office [place] Office [address] Fernanda Barrett [address] [phone] F: [phone] F: [phone] F: [phone] F: [phone] Physical Therapy Plan of Care Date of Evaluation: 05/31/24 Date of Surgery: Diagnosis: This is a 68 yo female presenting to skilled PT with a script for vertigo. Assessment: This is a 68 yo female presenting to skilled PT with a script for vertigo. Patient reports living in [place] and about a year ago had an episode of acute dizziness, right-sided facial numbness, issues with speech and amnesia. She was evaluated at [facility] including a MRI of brain that did show small vessel infarctions. Referring PCP note states that her BP was elevated at her appointment and this may be contributing to her symptoms as well. Symptoms cane be at rest and with with movement. Symptoms increase with transfers supine <> sit, driving and turning her head side to side, walking (due to balance, she has had falls). She reports occasional ringing in the R ear and occasionally sees black spots. She had therapy for her symptoms which was a little helpful at the time as well. She also endorses decreased balance and fear of falling. Examination shows + oculomotor tests with saccades, (-) VBI B, and decreased cervical AROM. She was (-) for BPPV with carla-hallpike B and B roll test but demos falls risk with balance assessment during DGI and Martin SOPT. S/S are not consistent with BPPV however she may benefit from an HEP for balance and vestibular eye exercises for which she is willing to do. I also spoke with her about craniosacral therapy for general dizziness and she is willing to try this as well. She would benefit from PT 2x/wk for 4wks to address impairments, implement HEP and optimize functional mobility. Frequency and Duration: The patient will be seen 2x/wk for 4wks Short Term Goals: Negative in all 6 canals for dizziness and nystagmus Understand balance strategies with transfers, ADLs and household tasks to prevent falls Understand the anatomy of the inner ear, causes of dizziness Operational Communication Chief Goals: Patient will report 50% improvement in symptoms Patient will be I in HEP for balance and occulomotor exercises Patient will report improved confidence with balance tasks Treatment Plan: Modalities to reduce pain, spasms and effusion. Manual therapy to restore motion and function. Therapeutic exercise to improve strength and flexibility. Neuromuscular re-education for posture and balance. Therapeutic activities to return to functional activities of daily living. Electronically signed by: Mady Garduno PT Please sign and return to therapist. Thank you for your referral.
--- NOTE | 2024-08-18 14:29 | MHC.PT.DC ---
[facility] [place] Office [place] Office [place] Office [address] Fernanda Barrett [address] [phone] F: [phone] F: [phone] F: [phone] F: [phone] Physical Therapy Discharge Report Diagnosis: This is a 68 yo female presenting to skilled PT with a script for vertigo. Date of Surgery: Date of Evaluation: 05/31/24 Date of Discharge: 08/18/24 Treatments to Date: 11 Cancellations to Date: 0 No Shows to Date: 0 Discharge Status: Patient Elected to Stop Physician Discontinued Tx Discharge Summary: Patient came to 11 appointments for vestibular and craniosacral therapy. She called and reported to the front desk clerk that her MD discontinued her PT tx. DC to HEP. Electronically signed by: Mady Garduno PT Please sign and return to therapist. Thank you for your referral.
== END 2024-08-18 14:29 | disposition home or self-care (01) ==
LOC: HO.PTCHIC 11:00
PROVIDERS: PCP Physician Assistant; Visit Provider Physician Assistant
DX: H81.90 Unspecified disorder of vestibular function, unspecified ear (principal)
CPT/HCPCS: 97110; 97112; 97140; 97162

== ENCOUNTER 2024-10-27 08:03 | Outpatient (REF) | payer MEDICARE, SELFPAY ==
[2024-10-27 09:05] LABS: Hematocrit 38.9 % (37.0-47.0); Hemoglobin 12.9 g/dl (12.0-16.0); Mean Corpuscular HGB Conc 33.2 g/dl (31.0-35.0); Mean Corpuscular Hemoglobin 28.9 pg (27.0-33.0); Mean Corpuscular Volume 87.2 fL (80.0-98.0); Mean Platelet Volume 10.8 fL (9.4-12.3); Platelet Count 253 X10*3/uL (160-400); Red Blood Count 4.46 X10*6/uL (4.20-5.50); Red Cell Distribution Width 13.1 % (11.0-16.0); White Blood Count 8.2 X10*3/uL (4.8-10.8)
[2024-10-27 09:59] LABS: Alanine Aminotransferase 36 U/L (0-31); Albumin Level 4.6 g/dL (3.5-5.0); Alkaline Phosphatase 82 U/L (39-117); Anion Gap 11 (12-20); Aspartate Amino Transferase 25 U/L (5-31); Bilirubin Total 0.3 mg/dL (0.0-1.0); Blood Urea Nitrogen 16 mg/dL (9-16); Calcium 9.6 mg/dL (8.4-10.2); Carbon Dioxide 29 mmol/L (22-29); Chloride 107 mmol/L (96-108); Cholesterol 204 mg/dL (<200); Estimated Glomerular Filt Rate > 60; Glucose Fasting 94 mg/dL (60-99); HDL Cholesterol 56 mg/dL (>40); LDL Cholesterol Calculated 121 mg/dL (<100); Potassium 4.2 mmol/L (3.3-5.1); Sodium 143 mmol/L (135-145); Total Protein 7.6 g/dL (6.5-8.0); Triglycerides 138 mg/dL (<150)
[2024-10-27 10:18] LABS: TSH reflex Free T4 2.28 uIU/mL (0.32-4.0)
[2024-10-27 11:39] LABS: Microalbum/Creatinine Ratio Ur 9.7 ug/mg cr (<30)
== END 2024-10-27 08:04 | disposition home or self-care (01) ==
LOC: HO.LAB 08:03
PROVIDERS: PCP Physician Assistant; Visit Provider Physician Assistant
DX: I10 Essential (primary) hypertension (principal); E78.2 Mixed hyperlipidemia; E03.9 Hypothyroidism, unspecified
CPT/HCPCS: 36415; 80053; 80061; 82043; 82570; 84443; 85027

== ENCOUNTER 2024-11-09 09:55 | Outpatient (REF) | payer OTHER, SELFPAY ==
--- NOTE | ~2024-11-09 | XR_ITS ---
EXAMINATION: XR SHOULDER, RIGHT CLINICAL INFORMATION: M25.511 - Pain in right shoulder COMPARISON: 09/05/2016. TECHNIQUE: AP external rotation, Grashey, scapular Y, and axillary views of the right shoulder. FINDINGS: Normal bone mineralization. No fracture, dislocation, or suspicious bone lesion. Normal alignment. The glenohumeral joint is normal. The AC joint demonstrates mild degenerative arthritis with superior surface spurring. There is a type II acromion. No undersurface spurring. The subacromial space is preserved. There is moderate calcification of the infraspinatus tendon abutting the greater tuberosity. Remainder of the soft tissue and bony structures appear normal. XR/XR shoulder RT min 2V IMPRESSION: 1. Moderate calcific tendinopathy of the infraspinatus tendon. This has worsened since 2017. 2. Mild degenerative arthritis of the AC joint. Electronically signed by: Anthony Mcclure MD 11/09/2024 11:30 AM EDT
== END 2024-11-09 09:56 | disposition home or self-care (01) ==
LOC: HO.LAB 09:55
PROVIDERS: PCP Physician Assistant; Visit Provider Physician Assistant
DX: I10 Essential (primary) hypertension (principal); E03.9 Hypothyroidism, unspecified; K21.9 Gastro-esophageal reflux disease without esophagitis; M25.511 Pain in right shoulder; M47.816 Spondylosis without myelopathy or radiculopathy, lumbar region; E78.2 Mixed hyperlipidemia; E66.811 Obesity, class 1; G89.29 Other chronic pain; Z68.33 Body mass index [BMI] 33.0-33.9, adult
CPT/HCPCS: 73030; 96127; 99212

== ENCOUNTER 2024-11-09 09:55 | Outpatient (AMB) | payer MEDICARE, MEDICAID, SELFPAY ==
--- NOTE | 2024-11-09 09:57 | A.OFFPC_ITS ---
Vital Signs 11/09/24 09:58 Height 5 ft 2 in Weight 183 lb 4 oz BMI 33.5 BP 124/70 Blood Pressure Location Lt brachial Position Sitting Pulse 71 Pulse Source Pulse Oximeter Pulse Oximetry (%) 94 Oxygen Delivery Method Room Air Intake Visit Reasons: f/u HTN/ Labs - see comments [facility] Department Manager Required: No Accompanied by: Self / Same As Patient Allergies loratadine (From CLARITIN) Allergy (Severe, Verified 11/09/24 10:42) PASS OUT, syncope prednisolone Allergy (Unknown, Verified 11/09/24 10:42) syncope tramadol (From ULTRAM) Allergy (Unknown, Verified 11/09/24 10:42) UNKNOWN, rash prednisone (PREDNISONE) Adverse Reaction (Severe, Verified 11/09/24 10:42) SWELLING statins Allergy (Unknown, Uncoded 11/09/24 10:42) muscle px Medication List - Last Reconciled 11/09/24 by Eliezer Viera PA-C acetaminophen ER (Pain Relief (acetaminophen)) 1,300 mg (2 x 650 mg) PO Q8H 30 days aspirin (Adult Low Dose Aspirin) 81 mg PO DAILY 90 days azithromycin For 250 mg dose pack: take 500 mg today (day 1), then 250 mg for 4 days (days 2-5) PO baclofen 10 mg PO DAILY diclofenac sodium 1% 1 ea topical QID 30 days ezetimibe 10 mg PO DAILY fluticasone propion-salmeterol 500-50 mcg/dose (Advair Diskus) 1 inh inhalation BID 30 days gabapentin 400 mg PO BID 90 days hydrocortisone valerate 0.2% 1 appl topical BID PRN 10 days hydroxyzine HCl 10 mg PO BEDTIME PRN 10 days ipratropium bromide 2 sprays intranasal BID 30 days levothyroxine 125 mcg PO DAILY losartan-hydrochlorothiazide 50-12.5 mg 1 tab PO DAILY 90 days meloxicam 15 mg PO DAILY miscellaneous medical supply (Blood Pressure Cuff) As directed montelukast 10 mg PO DAILY omeprazole 20 mg PO BID 90 days Tobacco use date assessed: 11/09/24 Fall risk assessment: No Falls in past year Last assessed Fall Risk: 11/09/24 Dental Screening Dental Screen Date: 11/09/24 HPI f/u HTN/ Labs - see comments HPI Details Patient is a 69-year-old female here today for follow-up visit.? 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 Concern--> patient reports she has been having right shoulder pain and decreased range of motion, has had cortisone injections in her right shoulder for her arthritis. She did have x-rays a few years ago over right shoulder that did show calcified tendinitis. She is willing to do repeat x-rays and see Orthopedics for possible cortisone injection. Patient not willing to do physical therapy at this time. . HTN:? Blood pressure acceptable today in office . Patient continues on losartan hydrochlorothiazide with good effect on her blood pressure. .. Hypothyroidism:? Continues on levothyroxine JOSEPH most recent TSH stable? Also does have a history of thyroid nodules and needs repeat ultrasound for surveillance. Laboratory Tests 04/18/22 04/13/24 10/27/24 09:10 07:19 08:15 RBC 4.46 Hgb Creatinine 0.88 Fasting Glucose 103 H Cholesterol 214 190 LDL Cholesterol, C alc 109 H TSH 2.02 Urine Microalbumin 40.0 16.0 10/27/24 08:16 RBC 4.46 Hgb 12.9 Creatinine Fasting Glucose 94 Cholesterol 204 H LDL Cholesterol, C alc 121 H TSH Urine Microalbumin PFSH Medical History PVD (peripheral vascular disease) with claudication Surgical History History of cholecystectomy History of appendectomy History of hysterectomy History of neck surgery Family History Mother Breast cancer, Onset Age: 60 Sister Breast cancer Father Heart attack, Onset Age: 50 Other Mental health disorder Substance use disorder Social History Housing: House Alcohol intake: never Patient Tobacco Use Status: Never used Tobacco Tobacco use type: Cigarette e-Cigarette/Vaping Use: Never Used Second Hand Smoke Exposure: No service: No Current occupational status: disabled Cognitive needs: No Hearing needs: No Vision needs: Yes (Glasses) Questionnaire Thrive Questionnaire Date Thrive assessed: 11/09/24 I am a: Patient What is your living situation today?: I have a steady place to live Within the past 12 months, did the food you bought not last and you didn't have the money to get more?: Often true Within the past 12 months, did you worry whether your food would run out before you got money to buy more?: Sometimes True Do you have trouble paying for medicines?: No Do you have trouble getting transportation to medical appointments?: No Do you have trouble paying your heating and electricity bill?: No Do you have trouble taking care of your child, family member or friend?: No Do you have trouble with day-to-day activities such as bathing, preparing meals, shopping, managing finances, etc.?: No Are you currently unemployed and looking for a job?: No Are you interested in more education?: No Please select the resources that you would like help with: None Currently or been in a relationship where the following occur: No concerns reported THRIVE Score: 2 AUDIT C Alcohol Use Questionnaire (AUDIT-C) 1. How often do you have a drink containing alcohol?: Never Total Score: 0 JOSEPH-7 AMB Questionnaire JOSEPH-7 Date JOSEPH - 7 assessed: 11/09/24 Feeling nervous, anxious, or on edge: 1 = Several days Not being able to stop or control worryin = Not at all Worrying too much about different things: 1 = Several days Trouble relaxin = Several days Being so restless that it is hard to sit still: 0 = Not at all Becoming easily annoyed or irritable: 0 = Not at all Feeling afraid as if something awful might happen: 0 = Not at all Total JOSEPH-7 score (0-4 normal; 5-9 mild; 10-14 moderate; 15-21 severe): 3 Source: Developed by Drs. Shashank Fuchs, Tamika Freeman, Duy Bustamante and colleagues, with an educational travon from [employer]. JOSEPH-7 Assessment Billing JOSEPH-7 Assessment Tool: JOSEPH-7 Assessment 06023 Review of Systems Const Denies headache(s) Eyes Denies loss of vision ENT Denies vertigo, Denies dizziness, Denies headache(s) and Denies sore throat Card Denies chest pain, Denies leg edema and Denies lightheadedness Resp Denies cough, Denies hemoptysis and Denies wheezing GI Denies abdominal pain, Denies melena, Denies constipation, Denies diarrhea and Denies vomiting Denies urinary frequency, Denies dysuria and Denies urinary urgency Musc Denies arthralgias, Denies joint swelling, Denies numbness and Denies tingling Neuro Denies Abnormal speech present, Denies behavioral changes, Denies vertigo, Denies dizziness, Denies headache(s), Denies loss of vision, Denies memory loss, Denies numbness and Denies tingling Psych Denies anxiety, Denies behavioral changes, Denies depression, Denies memory loss and Denies panic attacks Petey/Lymph Denies easy bleeding and Denies easy bruising Aller/Immun Denies wheezing Physical exam (Primary Care) Vital Signs: Last Vital Signs Pulse 71 11/09/24 09:58 BP 124/70 11/09/24 09:58 Pulse Ox 94 11/09/24 09:58 Oxygen Delivery Method Room Air 11/09/24 09:58 BMI result Body Mass Index 33.5 BMI Assessment/Plan discussion: High BMI High, discussed plan: lifestyle, weight reduction, dietary and physical activity Tobacco/Smoking Status: Tobacco use Status Tobacco use date assessed 11/09/24 11/09/24 09:59 Patient Tobacco Use Status Never used Tobacco 11/09/24 09:59 Tobacco use type Cigarette 11/09/24 09:59 e-Cigarette/Vaping Use Never Used 11/09/24 09:59 Thrive Assessment: Date of Thrive Assessment Date Thrive assessed 11/09/24 11/09/24 09:59 Currently or been in a relationship where the following occur: No concerns reported Const General: healthy appearing, no acute distress, alert and awake Nutritional Appearance: well nourished Orientation/consciousness: oriented to person, oriented to place and oriented to time HENMT Ears: TM's normal bilaterally General nose exam: Normal nasal mucous membranes and turbinates present Eyes Conjunctivae: conjunctivae normal Sclerae: sclerae normal Pupils: Equal, round and reactive pupils present Neck Neck: Yes no lymphadenopathy and Yes no JVD Thyroid: Thyroid normal Carotids: no bruits Resp Effort & Inspection: normal respiratory effort and not tachypneic Auscultation: no crackles, no rales, no rhonchi and no wheezes Cardio Rate: regular rate Rhythm: regular rhythm Heart sounds: no murmurs and normal S1 and S2 GI Palpation (GI): Soft to palpation, nontender, no hepatomegaly and no splenomegaly Auscultation: normal bowel sounds Skin General skin exam: no rashes or lesions noted and dry skin Neuro General: oriented to person, oriented to place and oriented to time Cranial nerves: Yes Equal, round and reactive pupils present Speech: No Abnormal speech present Gait exam (Neuro): Normal gait present Motor exam (neuro): no tremor noted Extrem Other: Right shoulder: Limited range of motion as compared to the left shoulder, unable to lift right arm above head, negative empty can, negative Monsalve test Right upper extremity: full ROM Left upper extremity: full ROM Right lower extremity: full ROM; no edema Left lower extremity: full ROM; no edema Psych Mental Status: mental status grossly normal Speech and movement: Normal speech and movement present Affect: normal affect Attitude: cooperative Thought process: Normal thought process present Coding Level of Care Code Est Pt Level 4 (18931) Diagnoses Hypothyroidism, unspecified type E03.9 Hypothyroidism type: unspecified Primary hypertension I10 Hypertension type: primary hypertension Mixed hyperlipidemia E78.2 Hyperlipidemia type: mixed hyperlipidemia Class 1 obesity E66.811 Chronic right shoulder pain M25.511; G89.29 Chronicity: chronic Additional Codes JOSEPH-7 Assessment Billing - JOSEPH-7 Assessment Tool: JOSEPH-7 Assessment 83813 ([id number]) Assessment & Plan Assessment & Plan (1) Hypothyroid: Code(s): E03.9 - Hypothyroidism, unspecified Category: Medical Qualifiers: Hypothyroidism type: unspecified Qualified Code(s): E03.9 - Hypothyroidism, unspecified Plan: Most recent TSH stable. She continues on a stable dose of levothyroxine at this time. (2) HTN (hypertension): Code(s): I10 - Essential (primary) hypertension Category: Medical Qualifiers: Hypertension type: primary hypertension Qualified Code(s): I10 - Essential (primary) hypertension Plan: Patient's blood pressure acceptable today in office.. Goal blood pressure to be below 140/90 (3) HLD (hyperlipidemia): Code(s): E78.5 - Hyperlipidemia, unspecified Category: Medical Qualifiers: Hyperlipidemia type: mixed hyperlipidemia Qualified Code(s): E78.2 - Mixed hyperlipidemia Plan: Most recent fasting lipid panel showing excellent control over total cholesterol and LDL. Goal LDL is to remain below 130 (4) Class 1 obesity: Code(s): E66.811 - Obesity, class 1 Category: Medical Plan: Patient does understand her BMI is over 30 will work on being more physically active and adapting to better eating habits to reduce her weight. (5) Right shoulder pain: Code(s): M25.511 - Pain in right shoulder Category: Medical Qualifiers: Chronicity: chronic Qualified Code(s): M25.511 - Pain in right shoulder; G89.29 - Other chronic pain Plan: As per HPI patient has calcified tendinitis of the right shoulder, cortisone injections in the past relieved her right shoulder pain. She is interested in seeing orthopedics for her right shoulder. Orders: Orders Complete Blood Count no Diff 11/09/24 I10 - Essential (primary) hypertension Microalbumin, Random (w Creat) 11/09/24 I10 - Essential (primary) hypertension Comprehensive [place]. Panel Fast 11/09/24 I10 - Essential (primary) hypertension TSH reflex Free T4 11/09/24 E03.9 - Hypothyroidism, unspecified Lipid Panel 11/09/24 E78.2 - Mixed hyperlipidemia XR shoulder RT 1V Today G89.29 - Other chronic pain, M25.511 - Pain in right shoulder Referrals Orthopedics Referral G89.29 - Other chronic pain, M25.511 - Pain in right shoulder Medications: Refilled acetaminophen ER (Pain Relief (acetaminophen)) 1,300 mg (2 x 650 mg) PO Q8H 180 tabs 2RF 30 days M47.816 - Spondylosis without myelopathy or radiculopathy, lumbar region Patient Instructions: Goal: Blood pressure to remain below 140/90 Barriers: Adherence to physical activity and healthy eating habits
[2024-11-09 09:58] VITALS: BP 124/70; PULSE 71; O2SAT 94; BMI 33.5
== END 2024-11-09 10:54 | disposition home or self-care (01) ==
LOC: HO.HMCH 09:55
PROVIDERS: PCP Physician Assistant; Visit Provider Physician Assistant
DX: E03.9 Hypothyroidism, unspecified (principal); I10 Essential (primary) hypertension; E66.811 Obesity, class 1; Z68.33 Body mass index [BMI] 33.0-33.9, adult; E78.2 Mixed hyperlipidemia; M25.511 Pain in right shoulder; G89.29 Other chronic pain

== ENCOUNTER → 2024-11-09 11:06 | Outpatient (BNV) | payer OTHER, SELFPAY | PROVIDERS: PCP Physician Assistant; Visit Provider Radiology Diagnostic Radiology | DX: M75.31 Calcific tendinitis of right shoulder (principal) | CPT/HCPCS: 73030 ==

== ENCOUNTER 2024-11-15 13:22 | Outpatient (AMB) | payer OTHER, SELFPAY ==
--- NOTE | 2024-11-15 13:38 | MHC.OFFVIS ---
Intake Visit Reasons: N/P right shoulder pain Intake Note: Candie is a 69 year old female who presents today as a new patient with complaints of right shoulder pain. Patient was recently seen by her PCP, x-rays were ordered and she was referred to orthopedics. Patient reports her pain has been present since September. Limited ROM. Denies injury. Hx of injection about 6 years ago that provided her with relief. She would like to repeat injection. her anterior asepct. No other recent treatment. Allergies loratadine (From CLARITIN) Allergy (Severe, Verified 11/15/24 13:38) PASS OUT, syncope prednisolone Allergy (Unknown, Verified 11/15/24 13:38) syncope tramadol (From ULTRAM) Allergy (Unknown, Verified 11/15/24 13:38) UNKNOWN, rash prednisone (PREDNISONE) Adverse Reaction (Severe, Verified 11/15/24 13:38) SWELLING statins Allergy (Unknown, Uncoded 11/15/24 13:38) muscle px Medication List - Last Reconciled 11/15/24 by Tanner Swan PA-C acetaminophen ER (Pain Relief (acetaminophen)) 1,300 mg (2 x 650 mg) PO Q8H 30 days aspirin (Adult Low Dose Aspirin) 81 mg PO DAILY 90 days baclofen 10 mg PO DAILY diclofenac sodium 1% 1 ea topical QID 30 days ezetimibe 10 mg PO DAILY fluticasone propion-salmeterol 500-50 mcg/dose (Advair Diskus) 1 inh inhalation BID 30 days gabapentin 400 mg PO BID 90 days hydrocortisone valerate 0.2% 1 appl topical BID PRN 10 days hydroxyzine HCl 10 mg PO BEDTIME PRN 10 days ipratropium bromide 2 sprays intranasal BID 30 days levothyroxine 125 mcg PO DAILY losartan-hydrochlorothiazide 50-12.5 mg 1 tab PO DAILY 90 days meloxicam 15 mg PO DAILY miscellaneous medical supply (Blood Pressure Cuff) As directed montelukast 10 mg PO DAILY omeprazole 20 mg PO BID 90 days HPI HPI N/P right shoulder pain: Details: 69 yo female presents to the office today for right shoulder pain x2 months. Denies recent injury. She has pain with reaching over head. She had an injection aprox 6 years ago with good relief. H/o cervical fusion. [facility] Medical History PVD (peripheral vascular disease) with claudication Surgical History History of cholecystectomy History of appendectomy History of hysterectomy History of neck surgery Family History Mother Breast cancer, Onset Age: 60 Sister Breast cancer Father Heart attack, Onset Age: 50 Other Mental health disorder Substance use disorder Social History Housing: House Alcohol intake: never Patient Tobacco Use Status: Never used Tobacco Tobacco use type: Cigarette e-Cigarette/Vaping Use: Never Used Second Hand Smoke Exposure: No service: No Current occupational status: disabled Cognitive needs: No Hearing needs: No Vision needs: Yes (Glasses) Review of Systems Const All systems reviewed & are unremarkable except as noted in HPI and below Physical Exam Extrem Other: Right shoulder normal to inspection ROM FF 100, 90 ABD, ER 80, IR back pocket +TTP over bicep tendon +Yergenson +Speeds test Office Procedures AMB Joint Injection/Aspiration Joint Injection/Aspiration Primary Site: right shoulder Prep: site was prepped using aseptic technique, ethochloride spray was applied and injection warnings given Injected: 80 mg of, DepoMedrol, with 8 mL of, 1% plain lidocaine and in the subcromial space Approach Used: posterolateral Procedure: The patient tolerated the procedure well and there was some relief with the local anesthesia Coding 76668 - Glenohumeral/Tronchanteric Bursa/Intraarticular Procedure code (CPT) selection complete Results Reviewed Results Reviewed: XR shoulder RT min 2V IMPRESSION: 1. Moderate calcific tendinopathy of the infraspinatus tendon. This has worsened since 2017. 2. Mild degenerative arthritis of the AC joint. Assessment & Plan Assessment & Plan (1) Arthrosis of right acromioclavicular joint: Code(s): M19.011 - Primary osteoarthritis, right shoulder Category: Medical (2) Right shoulder tendonitis: Code(s): M77.8 - Other enthesopathies, not elsewhere classified Category: Medical Plan We discussed options today, which include steroid injection. The patient did consent to move forward with the right shoulder injection, which was tolerated well.? I recommended rest, ice and elevation and OTC antiinflammatories prn for discomfort. I also order PT for right shoulder for ROM and periscap stab/RTC strength. If symptoms persist over the next 6-8 weeks, they will contact our office, otherwise, prn Coding Level of Care Code New Pt Level 3 (27349) Complex EM visit Add On G2211 Diagnoses Arthrosis of right acromioclavicular joint M19.011 Right shoulder tendonitis M77.8 CPT Codes Coding - Joint 7: 96226 - Glenohumeral/Tronchanteric Bursa/Intraarticular ([id number])
== END 2024-11-15 14:16 | disposition home or self-care (01) ==
LOC: HO.HOS 13:23
PROVIDERS: PCP Physician Assistant; Visit Provider Physician Assistant
DX: M19.011 Primary osteoarthritis, right shoulder (principal); M77.8 Other enthesopathies, not elsewhere classified
CPT/HCPCS: 20610; 99203

== ENCOUNTER → 2024-11-15 13:22 | Outpatient (BNVA) | payer OTHER, SELFPAY | PROVIDERS: PCP Physician Assistant; Visit Provider Physician Assistant | DX: M25.511 Pain in right shoulder (principal); M19.011 Primary osteoarthritis, right shoulder; M77.8 Other enthesopathies, not elsewhere classified; Z79.52 Long term (current) use of systemic steroids | CPT/HCPCS: 20610; J1010; J2003 ==